=== PATIENT | female | born 1970 | race Caucasian/White ===

== ENCOUNTER 2017-03-25 02:15 | Emergency (ER) | payer SELFPAY ==
[~2017-03-25] VITALS: Ht 162.6 cm; Wt 102.1 kg
[~2017-03-25 02:15] MED LIST: AC500T PO; AMOX500C2 PO; FERR-57 PO; HYDR1TAB PO; IBUPROFEN 800 MG; IBUPROFEN 800 MG PO; LNS30CCR PO; OXYC-12 PO; PREN1TAB39 PO; PRM25T PO
[2017-03-25] MEDS ORDERED: PRD20T PO (03:26)
--- NOTE | 2017-03-25 03:26 | ED Integumentary General ---
General Chief Complaint: Allergic Reaction Stated Complaint: SWOLLEN LIP Nursing Triage Note: LOWER LIP SWELLING X2HRS, UNK CAUSE, NO OTHER SYMPTOMS Source: patient Exam Limitations: no limitations History of Present Illness Time seen by provider: 03:13 Initial Comments Patient presents to ER by private conveyance with a primary concern of a swollen lower lip that has spread slightly from the right side to the left. She denies any dental pain or swelling or abscesses. She's had no fevers chills, stridor, wheezing, shortness of breath, difficulty with fluids. She's never had this before and she is not aware of any allergies to food items. No thing she ate yesterday was a dish that she prepared herself that she is eaten several times in the past and some cookies from her son's girlfriend. She has taken 800 mg of ibuprofen by mouth. Allergies and Home Medications Allergies Coded Allergies: Sulfa(Sulfonamide Antibiotics) (Verified Allergy, 07/06/11) Home Medications No Active Prescriptions or Reported Meds Constitutional: No chills, No diaphoresis EENTM: No ear pain, No eye pain Respiratory: No cough, No short of breath, No stridor, No wheezing Cardiovascular: No chest pain, No edema, No palpitations Gastrointestinal: No constipation, No diarrhea, No nausea Genitourinary: No discharge, No dysuria Musculoskeletal: No muscle stiffness, No neck pain Skin: see HPI Psychiatric/Neurological: Denies Numbness, Denies Paresthesia Past Lrdvegc-Ldvelw-Qxxpqf Hx Patient Social History Alcohol Use: Denies Use Recreational Drug Use: No Smoking Status: Current Everyday Smoker Type Used: Cigarettes 2nd Hand Smoke Exposure: Yes Recent Foreign Travel: No Contact w/Someone Who Travel: No Recent Infectious Disease Expo: No Recent Hopitalizations: No Immunizations Up To Date Tetanus Booster (TDap): Unknown Seasonal Allergies Seasonal Allergies: No Surgeries History of Surgeries: No Respiratory History of Respiratory Disorde: No Cardiovascular History of Cardiac Disorders: No Neurological History of Neurological Disord: No Reproductive System : No Hx Reproductive Disorders: No Genitourinary History of Genitourinary Disor: No Gastrointestinal History of Gastrointestinal Di: No Musculoskeletal History of Musculoskeletal Dis: No Endocrine History of Endocrine Disorders: No HEENT History of HEENT Disorders: No Cancer History of Cancer: No Psychosocial History of Psychiatric Problem: No Integumentary History of Skin or Integumenta: No Blood Transfusions History of Blood Disorders: No Physical Exam Vital Signs Vital Sign - Last 12Hours 03/25/17 02:28 Temp 97.3 Pulse 88 Resp 18 B/P (MAP) 171/86 Pulse Ox 99 O2 Delivery Room Air Capillary Refill : Less Than 3 Seconds General Appearance: WD/WN, no apparent distress HEENT: PERRL/EOMI, normal ENT inspection, TMs normal, other (right side lower molar with dental caries and a lower lip that is swollen with edema) Neck: non-tender, supple, normal inspection, lymphadenopathy (R), lymphadenopathy (L) (mild) Cardiovascular: normal peripheral pulses, regular rate, rhythm, no edema Respiratory: no respiratory distress, no accessory muscle use Extremities: normal range of motion, normal capillary refill Neurologic/Psychiatric: paper cone maker II-XII nml as tested, no motor/sensory deficits, alert, normal mood/affect, oriented x 3 Skin: normal color, warm/dry, other (edematous lower lip without induration or areas of fluctuation or pore or drainage) Skin Problem Location: face Progress/Results/Core Measures Results/Orders Vital Signs/I&O Vital Sign - Last 12Hours 03/25/17 02:28 Temp 97.3 Pulse 88 Resp 18 B/P (MAP) 171/86 Pulse Ox 99 O2 Delivery Room Air Blood Pressure Mean: 114 Departure Impression Impression: Primary Impression: Allergic reaction Qualified Codes: T78.40XA - Allergy, unspecified, initial encounter Additional Impression: Lip swelling Disposition: 01 HOME, SELF-CARE Condition: Stable Departure-Patient Inst. Decision time for Depature: 03:24 Referrals: [facility] (PCP) Primary Care Physician DELIA BACA DO (Family) Primary Care Physician Patient Instructions: Food Allergy, Anaphylaxis (DC) Add. Discharge Instructions: Once a day as needed use 10 mg tablet of either Zyrtec, Claritin, loratadine or cetirizine or Kacie or fexofenadine. You should also keep the lip moisturized with lip balm to prevent pain and cracking. Ice is reasonable. Take 2 of the prednisone tablets every day until they are gone. If you begin to have wheezing or stridor or difficulty breathing or swallowing your secretions or drinking you should return to the ER for further examination. Otherwise you may follow- up with your primary care physician as needed. All discharge instructions reviewed with patient and/or family. Voiced understanding. Scripts Prednisone (Prednisone) 20 Mg Tab 40 MG PO DAILY for 5 Days, #10 TAB 0 Refills Prov: RONNA ESCOTO 03/25/17 Copy Copies To 1: DELIA BACA TITUS J Mar 25, 2017 03:25
[2017-03-25] MEDS ORDERED: diphenhydrAMINE 25 MG TAB (BENADRYL) PO ONE (03:30)
[2017-03-25] MEDS ORDERED: predniSONE 20 MG TAB PO ONE (03:30)
[2017-03-25 03:39] VITALS: BP 171/86
== END 2017-03-25 03:28 | disposition home or self-care (01) ==
LOC: EDUNIT# 02:15 → ER 02:19
DX: T78.40XA Allergy, unspecified, initial encounter (principal); K13.0 Diseases of lips; F17.210 Nicotine dependence, cigarettes, uncomplicated
CPT/HCPCS: 99283

== ENCOUNTER 2020-08-04 17:09 | Inpatient (IN) | payer SELFPAY ==
[~2020-08-04] VITALS: Ht 162.5 cm; Wt 88.2 kg
[~2020-08-04 17:09] MED LIST changes: +PRD20T PO
--- NOTE | 2020-08-04 17:27 | ED Respiratory ---
General Chief Complaint: Respiratory Problems Stated Complaint: SOB DUE TO FLUID IN LUNGS Nursing Triage Note: PT HAD CXR AT [facility] AND WAS TOLD SHE HAD FLUID ON HER LUNGS, ALSO SWOLLEN LYMPH NODES UNDER LT ARM AND LT NECK. Source: patient Exam Limitations: no limitations History of Present Illness Date Seen by Provider: Aug 04, 2020 Time Seen by Provider: 17:25 Initial Comments To ER by private vehicle from [facility] where she presented with diarrhea for a couple of months as well as shortness of breath for couple of months. Its been getting worse. No fevers or chills or exposure to known ill contacts. She has had a lymph node at the base of the left side of her neck and in her left armpit for a couple of months as well she states. She had a chest x-ray done at [facility] which allegedly showed "fluid on the lungs" and she was referred to the emergency room. No history of this. Quit smoking 7 months ago. Reports an unintentional weight loss of about 20 pounds over the last 6 to 7 months secondary to a poor appetite Timing/Duration: constant, getting worse Severity: moderate Associated Symptoms: cough Allergies and Home Medications Allergies Coded Allergies: Sulfa (Sulfonamide Antibiotics) (Verified Allergy, Unknown, 08/04/20) Home Medications Prednisone 20 Mg Tab, 40 MG PO DAILY Prescribed by: RONNA ESCOTO on 03/25/17 0326 Patient Home Medication List Home Medication List Reviewed: Yes Review of Systems Review of Systems Constitutional: see HPI; No chills, No fever EENTM: see HPI Respiratory: see HPI, cough, short of breath Cardiovascular: no symptoms reported Genitourinary: no symptoms reported Musculoskeletal: no symptoms reported Skin: no symptoms reported Psychiatric/Neurological: No Symptoms Reported Hematologic/Lymphatic: No Symptoms Reported Past Jbmnigh-Sxalmf-Adidnc Hx Patient Social History Type Used: Cigarettes 2nd Hand Smoke Exposure: Yes Recent Infectious Disease Expo: No Recent Hopitalizations: No Immunizations Up To Date Tetanus Booster (TDap): Unknown Seasonal Allergies Seasonal Allergies: No Past Medical History Surgeries: No Respiratory: No Cardiac: No Neurological: No Last Menstrual Period: Aug 04, 2020 Reproductive Disorders: No CONTRACT PROJECT MANAGER History: Menopausal Genitourinary: No Gastrointestinal: No Musculoskeletal: No Endocrine: No HEENT: No Cancer: No Psychosocial: No Integumentary: No Blood Disorders: No Physical Exam Vital Signs - First Documented 08/04/20 17:19 Temp 36.9 Pulse 97 Resp 20 B/P (MAP) 167/89 (115) Pulse Ox 97 O2 Delivery Room Air Capillary Refill : Less Than 3 Seconds Height: 5'4.00" Weight: 225lbs. oz. 102.689323hz; 33.00 BMI Method:Stated General Appearance: WD/WN, no apparent distress, other (No distress but she is noticeably dyspneic. Oxygen saturation 96% and up.) Eyes: Bilateral Eye Normal Inspection, Bilateral Eye PERRL Neck: other (left supraclavicular lymphadenopathy) Respiratory: no respiratory distress, no accessory muscle use, decreased breath sounds (left lower) Cardiovascular: regular rate, rhythm, no murmur Gastrointestinal: normal bowel sounds, non tender Extremities: normal range of motion, non-tender, other (large left axillary adenopathy) Neurologic/Psychiatric: alert, normal mood/affect, oriented x 3 Skin: normal color, warm/dry Progress/Results/Core Measures Suspected Sepsis Recent Fever Within 48 Hours: No Infection Criteria Present: None New/Unexplained Altered Menta: No Sepsis Screen: No Definite Risk SIRS Temperature: Pulse: 97 Respiratory Rate: 20 Laboratory Tests 08/04/20 17:28: White Blood Count 18.9H Blood Pressure 167 /89 Mean: 115 Laboratory Tests 08/04/20 17:28: Creatinine 0.82, Platelet Count 530H, Total Bilirubin 0.3 Results/Orders Lab Results Laboratory Tests Test 08/04/20 17:28 Range/Units White Blood Count 18.9 H 4.3-11.0 10^3/uL Red Blood Count 4.79 3.80-5.11 10^6/uL Hemoglobin 10.5 L 11.5-16.0 g/dL Hematocrit 36 35-52 % Mean Corpuscular Volume 75 L 80-99 fL Mean Corpuscular Hemoglobin 22 L 25-34 pg Mean Corpuscular Hemoglobin Concent 29 L 32-36 g/dL Red Cell Distribution Width 19.8 H 10.0-14.5 % Platelet Count 530 H 130-400 10^3/uL Mean Platelet Volume 9.8 9.0-12.2 fL Immature Granulocyte % (Auto) 1 % Neutrophils (%) (Auto) 89 H 42-75 % Lymphocytes (%) (Auto) 4 L 12-44 % Monocytes (%) (Auto) 4 0-12 % Eosinophils (%) (Auto) 3 0-10 % Basophils (%) (Auto) 1 0-10 % Neutrophils # (Auto) 16.7 H 1.8-7.8 10^3/uL Lymphocytes # (Auto) 0.8 L 1.0-4.0 10^3/uL Monocytes # (Auto) 0.7 0.0-1.0 10^3/uL Eosinophils # (Auto) 0.5 H 0.0-0.3 10^3/uL Basophils # (Auto) 0.1 0.0-0.1 10^3/uL Immature Granulocyte # (Auto) 0.1 0.0-0.1 10^3/uL Neutrophils % (Manual) 91 % Lymphocytes % (Manual) 3 % Monocytes % (Manual) 3 % Eosinophils % (Manual) 3 % Basophils % (Manual) 0 % Band Neutrophils 0 % Polychromasia SLIGHT Hypochromasia MODERATE Anisocytosis MARKED Target Cells SLIGHT D-Dimer 10.42 H 0.00-0.49 UG/ML Sodium Level 138 135-145 MMOL/L Potassium Level 4.2 3.6-5.0 MMOL/L Chloride Level 102 98-107 MMOL/L Carbon Dioxide Level 23 21-32 MMOL/L Anion Gap 13 5-14 MMOL/L Blood Urea Nitrogen 10 7-18 MG/DL Creatinine 0.82 0.60-1.30 MG/DL Estimat Glomerular Filtration Rate > 60 BUN/Creatinine Ratio 12 Glucose Level 143 H 70-105 MG/DL Calcium Level 9.5 8.5-10.1 MG/DL Corrected Calcium 9.7 8.5-10.1 MG/DL Total Bilirubin 0.3 0.1-1.0 MG/DL Aspartate Amino Transf (AST/SGOT) 22 5-34 U/L Alanine Aminotransferase (ALT/SGPT) 13 0-55 U/L Alkaline Phosphatase 141 H 40-136 U/L B-Type Natriuretic Peptide 29.7 <100.0 PG/ML Total Protein 8.7 H 6.4-8.2 GM/DL Albumin 3.7 3.2-4.5 GM/DL Coronavirus 2019 (MAXIM) Negative Negative My Orders Orders - BOLIVAR OLIVO APRN Cbc With Automated Diff (08/04/20 17:17) Comprehensive Metabolic Panel (08/04/20 17:17) Ekg Tracing (08/04/20 17:17) BNP (08/04/20 17:17) Fibrin Degradation Products (08/04/20 17:17) Manual Differential (08/04/20 17:28) Iohexol Injection (Omnipaque 350 Mg/Ml 1 (08/04/20 18:00) Received Contrast (Hold Metformin- Contr (08/04/20 18:00) Sodium Chloride Flush (Catheter Flush Sy (08/04/20 18:00) Ns (Ivpb) (Sodium Chloride 0.9% Ivpb Bag (08/04/20 18:00) Covid 19 Inhouse Test (08/04/20 17:58) Ct Isela Chest/Noang Abd-Pelv W (08/04/20 18:17) Benzocaine Extension Tube (Hurricaine Ex (08/04/20 19:24) Albuterol Pre-Mix Nebs (Rt) (Proventil (08/04/20 20:15) Svn Small Volume Nebulizer (08/04/20 20:06) Cefepime Injection (Maxipime Injection) (08/04/20 20:15) Procalcitonin (Pct) (08/04/20 20:11) Blood Culture (08/04/20 20:11) Lactic Acid Analyzer (08/04/20 20:11) Medications Given in ED Current Medications Medications Dose Ordered Sig/Clinton Route Start Time Stop Time Status Last Admin Dose Admin Albuterol Sulfate 2.5 mg ONCE ONCE INH 08/04/20 20:15 08/04/20 20:16 DC 08/04/20 20:21 2.5 MG Iohexol 100 ml ONCE ONCE IV 08/04/20 18:00 08/04/20 18:01 DC 08/04/20 19:00 76 ML Sodium Chloride 10 ml NEEDED PRN IV 08/04/20 18:00 08/04/20 19:00 10 ML Sodium Chloride 100 ml ONCE ONCE IV 08/04/20 18:00 08/04/20 18:01 DC 08/04/20 19:00 80 ML Vital Signs/I&O 08/04/20 17:19 Temp 36.9 Pulse 97 Resp 20 B/P (MAP) 167/89 (115) Pulse Ox 97 O2 Delivery Room Air Capillary Refill : Less Than 3 Seconds Blood Pressure Mean: 115 Departure Communication (Admissions) 2032-Discussed with Dr Grace. Recommends transfer to facility with CTS given the pericardial effusion. Spoke with [facility], they are at capacity and recommends transfer to other facility. I then spoke with heath Ingram and they will page the hospitalist. I discussed this plan with the patient she becomes tearful. Her is working in [place], her 17-year-old son is here with her. Her eldest son is at home taking care of her youngest son who is 8 years old currently. She wants to stay here, at least until she can arrange childcare. She is very tearful. She states that she has been dealing with this for several months and the likelihood of this pericardial effusion causing any symptoms is unlikely. I discussed with her that we are not able to treat pericardial effusions here if this should need pericardiocentesis or pericardial window if she should develop sudden decompensation. She understands this risk and insists that she would like to stay here. I notified Dr. Grace, she agrees to admit the patient here to ICU with cardiology consult and surgery consult. Dr. Cottrell has seen the patient in the emergency room and will likely do a thoracentesis tomorrow. She is without signs of cardiac tamponade currently, no jugular vein distention or narrowed pulse pressure. Impression Primary Impression: Pleural effusion Additional Impression: Mediastinal mass Disposition: ADMITTED INPATIENT Condition: Stable Admissions Decision to Admit Reason: Admit from ER (General) Decision to Admit/Date: Aug 04, 2020 Time/Decision to Admit Time: 19:22 Departure-Patient Inst. Referrals: [facility] (PCP) Primary Care Physician DELIA BACA DO (Family) Primary Care Physician BOLIVAR OLIVO APRN Aug 04, 2020 17:27
[2020-08-04 17:35] LABS: BASOPHILS # (AUTO) 0.1 10^3/uL (0.0-0.1); BASOPHILS % (AUTO) 1 % (0-10); EOSINOPHILS # (AUTO) 0.5 10^3/uL (0.0-0.3); EOSINOPHILS % (AUTO) 3 % (0-10); HEMATOCRIT 36 % (35-52); HEMOGLOBIN 10.5 g/dL (11.5-16.0); LYMPHOCYTES # (AUTO) 0.8 10^3/uL (1.0-4.0); LYMPHOCYTES % (AUTO) 4 % (12-44); MEAN CORPUSCULAR HEMOGLOBIN 22 pg (25-34); MEAN CORPUSCULAR HGB CONC 29 g/dL (32-36); MEAN CORPUSCULAR VOLUME 75 fL (80-99); MEAN PLATELET VOLUME 9.8 fL (9.0-12.2); MONOCYTES # (AUTO) 0.7 10^3/uL (0.0-1.0); MONOCYTES % (AUTO) 4 % (0-12); NEUTROPHILS # (AUTO) 16.7 10^3/uL (1.8-7.8); NEUTROPHILS % (AUTO) 89 % (42-75); PLATELET COUNT 530 10^3/uL (130-400); WHITE BLOOD COUNT 18.9 10^3/uL (4.3-11.0)
[2020-08-04 17:45] LABS: ALBUMIN 3.7 GM/DL (3.2-4.5); CHLORIDE 102 MMOL/L (98-107); POTASSIUM 4.2 MMOL/L (3.6-5.0); SODIUM 138 MMOL/L (135-145)
[2020-08-04 17:47] LABS: CALCIUM 9.5 MG/DL (8.5-10.1)
[2020-08-04 17:48] LABS: GLUCOSE 143 MG/DL (70-105); TOTAL PROTEIN 8.7 GM/DL (6.4-8.2)
[2020-08-04 17:49] LABS: CARBON DIOXIDE 23 MMOL/L (21-32)
[2020-08-04 17:50] LABS: BILIRUBIN,TOTAL 0.3 MG/DL (0.1-1.0)
[2020-08-04 17:51] LABS: ALKALINE PHOSPHATASE 141 U/L (40-136); CREATININE SERUM 0.82 MG/DL (0.60-1.30); GFR ESTIMATED > 60
[2020-08-04 17:52] LABS: BUN/CREATININE RATIO 12
[2020-08-04 17:54] LABS: ALANINE AMINOTRANSFERASE 13 U/L (0-55)
[2020-08-04] MEDS ORDERED: HOLD METFORMIN - RECEIVED CONTRAST 20 ML VIAL IV SCH (18:00)
[2020-08-04] MEDS ORDERED: CATHETER FLUSH 10 ML SYR IV PRN (18:00)
[2020-08-04] MEDS ORDERED: NS 100 ML (IVPB) BAG IV ONE (18:00)
[2020-08-04] MEDS ORDERED: IOHEXOL 350 MG/ML 100 ML (OMNIPAQUE 350) VIAL IV ONE (18:00)
[2020-08-04 18:05] LABS: ANISOCYTOSIS MARKED; BAND NEUTROPHILS 0 %; BASOPHILS % (MANUAL) 0 %; EOSINOPHILS % (MANUAL) 3 %; LYMPHOCYTES % (MANUAL) 3 %; MONOCYTES % (MANUAL) 3 %; NEUTROPHILS % (MANUAL) 91 %; POLYCHROMASIA SLIGHT
[2020-08-04 18:06] LABS: HYPOCHROMASIA MODERATE; TARGET CELLS SLIGHT
[2020-08-04] MEDS ORDERED: HURRICAINE EXT TUBE (BENZOCAINE) ONE (19:24)
--- NOTE | 2020-08-04 19:53 | NUR ---
DR. HORVATH IN WITH PT.
--- NOTE | 2020-08-04 19:55 | Diagnostic Imaging Report ---
INDICATION: SOA, high d-dimer left supraclavicular/axillary lymph node, weight los TECHNIQUE: CTA chest, abdomen and pelvis. Thin axial sections through the chest, abdomen and pelvis are obtained following intravenous contrast bolus. Multiplanar MIP images were reconstructed and reviewed. All CT scans use one or more of the following dose optimizing techniques: automated exposure control, MA and/or KvP adjustment based on patient size and exam type or iterative reconstruction. FINDINGS: CT chest: There is extensive mediastinal adenopathy. This is most pronounced in the superior mediastinum with apparent lymph node mass encircling the trachea and great vessels arising from the aortic arch. This measures approximately 11.0 x 9.5 cm in aggregate without significant great vessel stenosis or occlusion. The mass also extends along the mediastinum and into bilateral hilar and subcarinal distributions. Additional left axillary adenopathy is identified with lymph node demonstrating a long axis measurement of 3.1 cm. There is large left pleural and pericardial effusion. There is a small amount of right pleural fluid with subjacent atelectasis noted. IMPRESSION: Bulky mediastinal and bilateral hilar adenopathy with lymphadenopathy involving the left axilla. Findings are highly suspicious for lymphoma such as Hodgkin's disease and clinical correlation is recommended. There is an associated large left pleural effusion and pericardial effusion. CTA abdomen/pelvis: No focal hepatic or splenic lesion is identified. Gas containing stones are present within the lumen of the gallbladder. No pancreatic or adrenal gland lesion is identified. There are cortical cysts within both kidneys without evidence of solid renal mass or hydronephrosis. No free fluid is seen within the abdomen or pelvis. The appendix has a normal appearance and no urinary bladder lesion is identified. There is prominence of the left ovary which may be due to ovarian cyst. No pathologically enlarged central retroperitoneal or mesenteric adenopathy is identified. Small inguinal lymph nodes are seen, bilaterally, without evidence of pathologic enlargement. IMPRESSION: Cholelithiasis without evidence of acute abnormality or pathologic adenopathy within the abdomen or pelvis. Dictated by: Dictated on workstation # [id number]
[2020-08-04] MEDS ORDERED: RT-ALBUTEROL SULF 2.5 MG/3 ML PRE-MIX VIAL INH ONE (20:15)
[2020-08-04] MEDS ORDERED: CEFEPIME INJECTION 1,000 MG in WATER (STERILE) FOR INJECTION 10 ML IV ONE (20:15)
--- NOTE | 2020-08-04 20:25 | Consultation - Surgery ---
History of Present Illness History of Present Illness Patient Consulted On(tapan/time) 08/04/20 20:20 Time Seen by Provider: 19:43 History of Present Illness Surgery asked to consult regarding pleural effusion and SOB. HPI per ED: PT HAD CXR AT [facility] AND WAS TOLD SHE HAD FLUID ON HER LUNGS, ALSO SW OLLEN LYMPH NODES UNDER LT ARM AND LT NECK. To ER by private vehicle from [facility] where she presented with diarrhea for a couple of months as well as shortness of breath for couple of months. Its been getting worse. No fevers or chills or exposure to known ill contacts. She has had a lymph node at the base of the left side of her neck and in her left armpit for a couple of months as well she states. She had a chest x-ray done at [facility] which allegedly showed "fluid on the lungs" and she was referred to the emergency room. No history of this. Quit smoking 7 months ago. Reports an unintentional weight loss of about 20 pounds over the last 6 to 7 months secondary to a poor appetite Timing/Duration: constant, getting worse Severity: moderate Associated Symptoms: cough When I spoke to pt this evening she was most concerned because she was having such trouble breathing; although she was 96% on room air. She states she has not had a mammogram, but did have a Pap smear this summer which was normal. Denies colonoscopy, but also denies melena or hematochezia and no abdominal pain. Pt denies chest pain, even with deep breathing. She thinks the trouble breathing started about 3 months ago and is progressively getting worse. She has been told she has low Hg and is taking iron supplementation. Allergies and Home Medications Allergies Coded Allergies: Sulfa (Sulfonamide Antibiotics) (Verified Allergy, Unknown, 08/04/20) Home Medications Prednisone 20 Mg Tab, 40 MG PO DAILY Prescribed by: RONNA ESCOTO on 03/25/17 0326 Patient Home Medication List Home Medication List Reviewed: Yes Past Hvjkujx-Gwpagt-Bsiclk Hx Patient Social History Drug of Choice: denies Smoking Status: Former Smoker (Smoked 1 1/2- 2 ppd for over 27 years) Former Smoker, Quit: Dec 07, 2019 Type Used: Cigarettes 2nd Hand Smoke Exposure: Yes Recent Hopitalizations: No Alcohol Use?: No Immunizations Up To Date Tetanus Booster (TDap): Unknown Seasonal Allergies Seasonal Allergies: Yes Surgeries History of Surgeries: No Respiratory History of Respiratory Disorde: No Cardiovascular History of Cardiac Disorders: Yes Cardiac Disorders: Palpitations Neurological History of Neurological Disord: No Reproductive System Hx Reproductive Disorders: No TECHNICAL SALES SUPPORT SPECIALIST History: Menopausal Genitourinary History of Genitourinary Disor: No Gastrointestinal History of Gastrointestinal Di: Yes (DIARRHEA IN THE MORNINGS) Musculoskeletal History of Musculoskeletal Dis: No Endocrine History of Endocrine Disorders: No HEENT History of HEENT Disorders: No Cancer History of Cancer: No Psychosocial History of Psychiatric Problem: Yes Behavioral Health Disorders: Anxiety, Bipolar, Depression Integumentary History of Skin or Integumenta: Yes (ITCHY SKIN) Blood Transfusions History of Blood Disorders: No Family Medical History Significant Family History: Heart Disease, Cancer (Father had lung cancer), Hypertension (mother) Review of Systems-General Constitutional: No diaphoresis; malaise, weakness EENTM: No blurred vision, No double vision, No mouth pain, No mouth swelling, No epistaxis Respiratory: cough, dyspnea on exertion; No hemoptysis; short of breath Cardiovascular: No chest pain, No edema; palpitations Gastrointestinal: No abdominal pain, No dysphagia, No jaundice; loss of appetite, nausea; No vomiting Genitourinary: No dysuria, No frequency, No hematuria Musculoskeletal: No joint pain, No joint swelling, No muscle pain, No muscle stiffness Skin: No change in color, No change in hair/nails Psychiatric/Neurological: Anxiety, Depressed; Denies Seizure, Denies Tremors Other HEMATOLOGY: Pt denies any hx of abnormal bleeding or bruising Physical Exam-General Problems Physical Exam Vital Signs Vital Signs - First Documented 08/04/20 17:19 Temp 36.9 Pulse 97 Resp 20 B/P (MAP) 167/89 (115) Pulse Ox 97 O2 Delivery Room Air Capillary Refill : Less Than 3 Seconds General Appearance: WD/WN, mild distress Eyes: Bilateral Eye PERRL, Bilateral Eye EOMI HEENT: pharynx normal; No scleral icterus (R), No scleral icterus (L); other (mucous membranes moist) Neck: non-tender, full range of motion, supple Respiratory: chest non-tender, no respiratory distress, no accessory muscle use, decreased breath sounds (left with dullness to percussion), crackles Cardiovascular: regular rate, rhythm, no murmur Gastrointestinal: normal bowel sounds, non tender, soft, no organomegaly, no pulsatile mass Back: no CVA tenderness, no vertebral tenderness Extremities: normal range of motion, normal inspection, no pedal edema, no calf tenderness, normal capillary refill Neurologic/Psychiatric: ladle cleaner II-XII nml as tested, no motor/sensory deficits, alert, normal mood/affect, oriented x 3 Skin: normal color, warm/dry, ecchymosis (on arms) Lymphatic: axilla node tender (L) (very large, bigger than a golf ball); No inguinal node tender (R), No inguinal node tender (L); other (large left reed praclavicular node) Data Review Labs Laboratory Tests 08/04/20 17:28: White Blood Count 18.9H, Red Blood Count 4.79, Hemoglobin 10.5L, Hematocrit 36, Mean Corpuscular Volume 75L, Mean Corpuscular Hemoglobin 22L, Mean Corpuscular Hemoglobin Concent 29L, Red Cell Distribution Width 19.8H, Platelet Count 530H, Mean Platelet Volume 9.8, Immature Granulocyte % (Auto) 1, Neutrophils (%) (Auto) 89H, Lymphocytes (%) (Auto) 4L, Monocytes (%) (Auto) 4, Eosinophils (%) (Auto) 3, Basophils (%) (Auto) 1, Neutrophils # (Auto) 16.7H, Lymphocytes # (Auto) 0.8L, Monocytes # (Auto) 0.7, Eosinophils # (Auto) 0.5H, Basophils # (Auto) 0.1, Immature Granulocyte # (Auto) 0.1, Neutrophils % (Manual) 91, Lymphocytes % (Manual) 3, Monocytes % (Manual) 3, Eosinophils % (Manual) 3, Basophils % (Manual) 0, Band Neutrophils 0, Polychromasia SLIGHT, Hypochromasia MODERATE, Anisocytosis MARKED, Target Cells SLIGHT, D-Dimer 10.42H, Sodium Level 138, Potassium Level 4.2, Chloride Level 102, Carbon Dioxide Level 23, Anion Gap 13, Blood Urea Nitrogen 10, Creatinine 0.82, Estimat Glomerular Filtration Rate > 60, BUN/Creatinine Ratio 12, Glucose Level 143H, Calcium Level 9.5, Corrected Calcium 9.7, Total Bilirubin 0.3, Aspartate Amino Transf (AST/SGOT) 22, Alanine Aminotransferase (ALT/SGPT) 13, Alkaline Phosphatase 141H, B-Type Natriuretic Peptide 29.7, Total Protein 8.7H, Albumin 3.7, Coronavirus 2019 (MAXIM) Negative Radiology Date of Exam:08/04/20 CT TRAE CHEST/NOANG ABD-PELV W INDICATION: SOA, high d-dimer left supraclavicular/axillary lymph node, weight los TECHNIQUE: CTA chest, abdomen and pelvis. Thin axial sections through the chest, abdomen and pelvis are obtained following intravenous contrast bolus. Multiplanar MIP images were reconstructed and reviewed. All CT scans use one or more of the following dose optimizing techniques: automated exposure control, MA and/or KvP adjustment based on patient size and exam type or iterative reconstruction. FINDINGS: CT chest: There is extensive mediastinal adenopathy. This is most pronounced in the superior mediastinum with apparent lymph node mass encircling the trachea and great vessels arising from the aortic arch. This measures approximately 11.0 x 9.5 cm in aggregate without significant great vessel stenosis or occlusion. The mass also extends along the mediastinum and into bilateral hilar and subcarinal distributions. Additional left axillary adenopathy is identified with lymph node demonstrating a long axis measurement of 3.1 cm. There is large left pleural and pericardial effusion. There is a small amount of right pleural fluid with subjacent atelectasis noted. IMPRESSION: Bulky mediastinal and bilateral hilar adenopathy with lymphadenopathy involving the left axilla. Findings are highly suspicious for lymphoma such as Hodgkin's disease and clinical correlation is recommended. There is an associated large left pleural effusion and pericardial effusion. CTA abdomen/pelvis: No focal hepatic or splenic lesion is identified. Gas containing stones are present within the lumen of the gallbladder. No pancreatic or adrenal gland lesion is identified. There are cortical cysts within both kidneys without evidence of solid renal mass or hydronephrosis. No free fluid is seen within the abdomen or pelvis. The appendix has a normal appearance and no urinary bladder lesion is identified. There is prominence of the left ovary which may be due to ovarian cyst. No pathologically enlarged central retroperitoneal or mesenteric adenopathy is identified. Small inguinal lymph nodes are seen, bilaterally, without evidence of pathologic enlargement. IMPRESSION: Cholelithiasis without evidence of acute abnormality or pathologic adenopathy within the abdomen or pelvis. Dictated by: Dictated on workstation # [id number] Dict: 08/04/201936 Trans: 08/04/201957 [facility] [id number] Interpreted by: FRAN FUENTES MD Electronically signed by: FRAN FUENTES MD 08/04/201957 Assessment/Plan Assessment/Plan Assessment/Plan Large Left Pleural Effusion Lymphadenopathy Left Lung mass Cholelithiasis without Cholecystitis Bulky Mediastinal Lymphadenopathy Pt has large pleural effusion with lymphadenopathy and probably would benefit from thoracentesis; which will be therapeutic and diagnostic. She is being admitted by medicine for Leukocytosis along with the pleural effusion. I talked with the pt and her son about our plan; which would be Thoracentesis, then biopsy of axillary lymph node and then possible mediastinal lymph node biopsy. We could stop the process at any point depending on whether we got a diagnosis or not. Will get consent for thoracentesis and plan for it in the am. Discussed risks and complications; not limited to pain, bleeding, infection and pneumothorax. She understood and all questions answered to her satisfaction. VALERI HORVATH DO Aug 04, 2020 20:25
[2020-08-04 21:20] VITALS: BP 154/79
[2020-08-04 21:45] VITALS: BP 147/91
[2020-08-04] MEDS ORDERED: LORazepam 0.5 MG (ATIVAN) TABLET PO PRN (21:45)
[2020-08-04] MEDS ORDERED: ONDANSETRON 4 MG (ZOFRAN) ORAL DISSOLVE TAB PO PRN (21:45)
[2020-08-04] MEDS ORDERED: IBUPROFEN 800 MG (MOTRIN) TAB PO PRN (21:45)
[2020-08-04 22:00] VITALS: BP 163/81
[2020-08-04 22:15] VITALS: BP 143/87
[2020-08-04 22:45] VITALS: BP 140/83
[2020-08-04 23:15] VITALS: BP 132/75
[2020-08-05] VITALS (26 sets, daily range): BP systolic 111–152; BP diastolic 52–91
[2020-08-05] MEDS ORDERED: RT-ALBUTEROL INHALER HFA (VENTOLIN HFA) 18 GM IH PRN (00:45)
[2020-08-05 03:55] LABS: BASOPHILS # (AUTO) 0.1 10^3/uL (0.0-0.1); BASOPHILS % (AUTO) 0 % (0-10); EOSINOPHILS # (AUTO) 0.2 10^3/uL (0.0-0.3); EOSINOPHILS % (AUTO) 1 % (0-10); HEMATOCRIT 31 % (35-52); HEMOGLOBIN 9.1 g/dL (11.5-16.0); LYMPHOCYTES # (AUTO) 0.7 10^3/uL (1.0-4.0); LYMPHOCYTES % (AUTO) 3 % (12-44); MEAN CORPUSCULAR HEMOGLOBIN 22 pg (25-34); MEAN CORPUSCULAR HGB CONC 29 g/dL (32-36); MEAN CORPUSCULAR VOLUME 74 fL (80-99); MEAN PLATELET VOLUME 9.7 fL (9.0-12.2); MONOCYTES # (AUTO) 0.8 10^3/uL (0.0-1.0); MONOCYTES % (AUTO) 4 % (0-12); NEUTROPHILS # (AUTO) 18.7 10^3/uL (1.8-7.8); NEUTROPHILS % (AUTO) 91 % (42-75); PLATELET COUNT 477 10^3/uL (130-400); WHITE BLOOD COUNT 20.6 10^3/uL (4.3-11.0)
[2020-08-05 04:12] LABS: CHLORIDE 103 MMOL/L (98-107); POTASSIUM 3.5 MMOL/L (3.6-5.0); SODIUM 137 MMOL/L (135-145)
[2020-08-05] MEDS: CEFEPIME 1,000 MG/SWFI 10 ML IV PUSH IV SCH ×8 (04:13→20:44)
[2020-08-05 04:14] LABS: GLUCOSE 119 MG/DL (70-105)
[2020-08-05 04:15] LABS: CARBON DIOXIDE 21 MMOL/L (21-32)
[2020-08-05 04:18] LABS: CREATININE SERUM 0.73 MG/DL (0.60-1.30); GFR ESTIMATED > 60; PHOSPHORUS 3.6 MG/DL (2.3-4.7)
[2020-08-05 04:19] LABS: BUN/CREATININE RATIO 11
--- NOTE | 2020-08-05 04:34 | Pulmonary Consultation ---
History of Present Illness History of Present Illness Date Seen by Provider: Aug 05, 2020 Time Seen by Provider: 04:29 Date of Admission History of Present Illness 49 presented to ED from To ER by private vehicle from [facility] where she presented with diarrhea for a couple of months as well as shortness of breath for couple of months. Its been getting worse. No fevers or chills or exposure to known ill contacts. She has had a lymph node at the base of the left side of her neck and in her left armpit for a couple of months as well she states. She had a chest x -ray done at [facility] which allegedly showed "fluid on the lungs" and she was referred to the emergency room. No history of this. Quit smoking 7 months ago. Reports an unintentional weight loss of about 20 pounds over the last 6 to 7 months secondary to a poor appetite Timing/Duration: constant, getting worse Severity: moderate Associated Symptoms: cough Allergies and Home Medications Allergies Coded Allergies: Sulfa (Sulfonamide Antibiotics) (Verified Allergy, Unknown, 08/04/20) Home Medications Prednisone 20 Mg Tab, 40 MG PO DAILY Prescribed by: RONNA ESCOTO on 03/25/17 0326 Past Xpnorcl-Uwtsqx-Bmohsc Hx Patient Social History Alcohol Use: Denies Use Drug of Choice: denies Smoking Status: Former Smoker (Smoked 1 1/2- 2 ppd for over 27 years) Type Used: Cigarettes Former Smoker, Quit: Dec 07, 2019 2nd Hand Smoke Exposure: Yes Recent Infectious Disease Expo: No Recent Hopitalizations: No Alcohol Use?: No Immunizations Up To Date Tetanus Booster (TDap): Unknown Seasonal Allergies Seasonal Allergies: Yes Past Medical History Surgeries: No Respiratory: No Cardiac: Yes Palpitations Neurological: No Last Menstrual Period: Aug 04, 2020 Reproductive Disorders: No [employer] JUDGE History: Menopausal Genitourinary: No Gastrointestinal: Yes (DIARRHEA IN THE MORNINGS) Musculoskeletal: No Endocrine: No HEENT: No Cancer: No Psychosocial: Yes Anxiety, Bipolar, Depression Integumentary: Yes (ITCHY SKIN) Blood Disorders: No Family Medical History Heart Disease, Cancer (Father had lung cancer), Hypertension (mother) Review of Systems Time Seen by Provider: 04:42 Sepsis Event Evaluation Height, Weight, BMI Height: 5'4.00" Weight: 225lbs. oz. 102.648584fl; 34.04 BMI Method:Stated Exam Exam Vital Signs Date Time Temp Pulse Resp B/P (MAP) Pulse Ox O2 Delivery O2 Flow Rate FiO2 08/05/20 01:00 81 08/05/20 00:34 37.1 89 94 21 08/04/20 23:55 37.2 08/04/20 23:15 89 26 132/75 (94) 94 Room Air 08/04/20 22:45 86 20 140/83 (102) 95 Room Air 08/04/20 22:15 96 10 143/87 (105) 97 Room Air 08/04/20 22:00 97 26 163/81 (108) 94 Room Air 08/04/20 21:45 93 28 147/91 (109) 96 Room Air 08/04/20 21:36 100 08/04/20 21:35 95 Room Air 08/04/20 21:20 37.1 89 16 154/79 (104) 97 Room Air 08/04/20 21:14 37.0 98 20 156/87 (115) 97 Room Air 08/04/20 17:19 36.9 97 20 167/89 (115) 97 Room Air I & O 08/05/20 07:00 Intake Total 110 ml Balance 110 ml Height & Weight Height: 5'4.00" Weight: 225lbs. oz. 102.594508bl; 34.04 BMI Method:Stated Capillary Refill: Less Than 3 Seconds Gastrointestinal: normal bowel sounds, non tender Results Lab Laboratory Tests 08/04/20 17:28 08/05/20 03:10 Assessment/Plan Assessment/Plan SOB with right pleural effusion -Dr. Taveras has already been consulted for thoracentesis Bulky mediastinal lymphadenopathy probable lymphoma -Will plan for bronch with EBUS next Wed Pericardial effusion -Check echo -Cardiology following -No HTN Leukocytosis -Continue Cefepime -Suggs cultures pending LINA ZELAYA DO Aug 05, 2020 04:34
--- NOTE | 2020-08-05 06:10 | Diagnostic Imaging Report ---
Portable erect AP chest at 202 hours. INDICATION: Pleural effusion, dyspnea. There are no prior plain film examinations available for comparison. FINDINGS: As noted on the CTA chest, abdomen and pelvis exam performed on 08/04/2020, the left lung base is opacified by atelectasis/infiltrate and fluid. The left upper lung and right lung remain generally clear. The heart is enlarged. The large pericardial effusion seen on the CT exam also contributes to the increased size of the cardiac silhouette. The mediastinum is prominent consistent with the bulky mediastinal adenopathy seen on the CT exam. The osseous structures are intact. IMPRESSION: There is persistent involvement of the left lung base by atelectasis/infiltrate and fluid. There is also cardiomegaly and mediastinal widening due to bulky adenopathy. When compared to the recent CTA chest exam, there has been no significant change. Dictated by: Dictated on workstation # [id number]
[2020-08-05] MEDS ORDERED: KCL 20 MEQ TAB (K-DUR) PO ONE (08:00)
[2020-08-05] MEDS ORDERED: FLU QUADRIvalent (3YOA+) 60 mcg/0.5 ml 2020-21 (AFLURIA) IM ONE (08:00)
--- NOTE | 2020-08-05 08:24 | Progress Note - Surgery ---
CATRACHO GUZMAN MED STUDENT 08/05/20 0823: Subjective Date Seen by a Provider: Aug 05, 2020 Time Seen by a Provider: 07:30 Subjective/Events-last exam Pt was seen and examined this morning. She was sitting up in bed when I entered the room and stated that she was unable to sleep because she is worried about the possibility of having lymphoma. Pt stated that she was in no pain and denied SOB while sitting in bed. She stated that she experiences SOB after minimal exertion and it prevents her from walking around her room. Pt also had a lot of questions regarding the thoracentesis this morning and was nervous that it would be painful. Review of Systems General: Fatigue Pulmonary: Dyspnea (with exertion) Focused Exam Lactate Level 08/04/20 20:30: Lactic Acid Level 1.05 Time of Focused Exam: 07:30 Respiratory: Chest Non Tender, No Accessory Muscle Use, No Respiratory Distress, Decreased Breath Sounds (left lobes) Cardiovascular: Regular Rate, Rhythm, No Gallop, No Murmur, Normal Peripheral Pulses Skin: normal color, warm/dry Objective Exam Vital Signs Date Time Temp Pulse Resp B/P (MAP) Pulse Ox O2 Delivery O2 Flow Rate FiO2 08/05/20 08:05 100 Room Air 08/05/20 08:00 80 20 145/82 (103) 96 Room Air 08/05/20 07:00 74 19 142/75 (97) 93 Room Air 08/05/20 07:00 86 08/05/20 06:00 73 23 143/82 (102) 93 Room Air 08/05/20 05:00 80 21 150/83 (105) 92 Room Air 08/05/20 04:00 92 16 152/78 (102) 95 Room Air 08/05/20 03:00 87 23 128/68 (88) 91 Room Air 08/05/20 02:00 80 20 136/85 (102) 96 Room Air 08/05/20 01:00 81 08/05/20 01:00 80 20 152/87 (108) 95 Room Air 08/05/20 00:34 37.1 89 94 21 08/05/20 00:00 89 21 145/77 (99) 96 Room Air 08/04/20 23:55 37.2 08/04/20 23:15 89 26 132/75 (94) 94 Room Air 08/04/20 22:45 86 20 140/83 (102) 95 Room Air 08/04/20 22:15 96 10 143/87 (105) 97 Room Air 08/04/20 22:00 97 26 163/81 (108) 94 Room Air 08/04/20 21:45 93 28 147/91 (109) 96 Room Air 08/04/20 21:36 100 08/04/20 21:35 95 Room Air 08/04/20 21:20 37.1 89 16 154/79 (104) 97 Room Air 08/04/20 21:14 37.0 98 20 156/87 (115) 97 Room Air 08/04/20 17:19 36.9 97 20 167/89 (115) 97 Room Air I & O 08/05/20 07:00 Intake Total 220 ml Balance 220 ml Capillary Refill : Less Than 3 Seconds General Appearance: No Apparent Distress, Anxious HEENT: PERRL/EOMI Neck: Normal Inspection, Non Tender, Supple Respiratory: Chest Non Tender, No Accessory Muscle Use, No Respiratory Di stress, Decreased Breath Sounds (left lobes) Cardiovascular: Regular Rate, Rhythm, No Gallop, No Murmur, Normal Peripheral Pulses Gastrointestinal: normal bowel sounds, non tender, soft Extremity: Normal Capillary Refill, Normal Inspection, Non Tender, No Calf Tenderness, No Pedal Edema Neurologic/Psychiatric: Alert, Oriented x3, No Motor/Sensory Deficits, Depressed Affect Skin: Normal Color, Warm/Dry Lymphatic: Axilla Node Tender (L) Results Lab Laboratory Tests 08/04/20 17:28: White Blood Count 18.9H, Red Blood Count 4.79, Hemoglobin 10.5L, Hematocrit 36, Mean Corpuscular Volume 75L, Mean Corpuscular Hemoglobin 22L, Mean Corpuscular Hemoglobin Concent 29L, Red Cell Distribution Width 19.8H, Platelet Count 530H, Mean Platelet Volume 9.8, Immature Granulocyte % (Auto) 1, Neutrophils (%) (Auto) 89H, Lymphocytes (%) (Auto) 4L, Monocytes (%) (Auto) 4, Eosinophils (%) (Auto) 3, Basophils (%) (Auto) 1, Neutrophils # (Auto) 16.7H, Lymphocytes # (Auto) 0.8L, Monocytes # (Auto) 0.7, Eosinophils # (Auto) 0.5H, Basophils # (Auto) 0.1, Immature Granulocyte # (Auto) 0.1, Neutrophils % (Manual) 91, Lymphocytes % (Manual) 3, Monocytes % (Manual) 3, Eosinophils % (Manual) 3, Basophils % (Manual) 0, Band Neutrophils 0, Polychromasia SLIGHT, Hypochromasia MODERATE, Anisocytosis MARKED, Target Cells SLIGHT, D-Dimer 10.42H, Sodium Level 138, Potassium Level 4.2, Chloride Level 102, Carbon Dioxide Level 23, Anion Gap 13, Blood Urea Nitrogen 10, Creatinine 0.82, Estimat Glomerular Filtration Rate > 60, BUN/Creatinine Ratio 12, Glucose Level 143H, Calcium Level 9.5, Corrected Calcium 9.7, Total Bilirubin 0.3, Aspartate Amino Transf (AST/SGOT) 22, Alanine Aminotransferase (ALT/SGPT) 13, Alkaline Phosphatase 141H, B-Type Natriuretic Peptide 29.7, Total Protein 8.7H, Albumin 3.7, Procalcitonin 0.06, Coronavirus 2019 (MAXIM) Negative 08/04/20 20:30: Lactic Acid Level 1.05 08/05/20 03:10: White Blood Count 20.6H, Red Blood Count 4.17, Hemoglobin 9.1L, Hematocrit 31L, Mean Corpuscular Volume 74L, Mean Corpuscular Hemoglobin 22L, Mean Corpuscular Hemoglobin Concent 29L, Red Cell Distribution Width 19.1H, Platelet Count 477H, Mean Platelet Volume 9.7, Immature Granulocyte % (Auto) 1, Neutrophils (%) (Auto) 91H, Lymphocytes (%) (Auto) 3L, Monocytes (%) (Auto) 4, Eosinophils (%) (Auto) 1, Basophils (%) (Auto) 0, Neutrophils # (Auto) 18.7H, Lymphocytes # (Auto) 0.7L, Monocytes # (Auto) 0.8, Eosinophils # (Auto) 0.2, Basophils # (Auto) 0.1, Immature Granulocyte # (Auto) 0.1, Sodium Level 137, Potassium Level 3.5L, Chloride Level 103, Carbon Dioxide Level 21, Anion Gap 13, Blood Urea Nitrogen 8, Creatinine 0.73, Estimat Glomerular Filtration Rate > 60, BUN/Creatinine Ratio 11, Glucose Level 119H, Calcium Level 9.0, Phosphorus Level 3.6, Magnesium Level 2.0 Assessment/Plan Assessment/Plan Assessment/Plan Assessment: Large Left Pleural Effusion Lymphadenopathy Left Lung mass Cholelithiasis without Cholecystitis Bulky Mediastinal Lymphadenopathy Leukocytosis: WBC was 20.6 today Plan: Thoracentesis with biopsy of axillary lymph node and then possible mediastinal lymph node biopsy VADIM HORVATH DO 08/05/20 1215: Subjective Time Seen by a Provider: 09:12 Subjective/Events-last exam Pt seen and examined, states breathing is the same. She is ready for Thoracentesis. Review of Systems General: Fatigue Pulmonary: Dyspnea (with exertion), Cough Cardiovascular: Palpitations; No: Chest Pain Gastrointestinal: No: Nausea, Vomiting, Abdominal Pain Objective Exam General Appearance: No Apparent Distress, Anxious HEENT: PERRL/EOMI Respiratory: No Respiratory Distress, Accessory Muscle Use, Decreased Breath Sounds (left lower lobes) Cardiovascular: Regular Rate, Rhythm, No Murmur Gastrointestinal: non tender, soft, no organomegaly Lymphatic: Axilla Node Tender (L) Assessment/Plan Assessment/Plan Assessment/Plan Large Left Pleural Effusion Lymphadenopathy Left Lung mass Cholelithiasis without Cholecystitis Bulky Mediastinal Lymphadenopathy Leukocytosis: WBC was 20.6 today Plan: Thoracentesis with biopsy of axillary lymph node; spoke with Dr. Goff and thinks the best pathological diagnosis will come from lymph node. Plan to go to surgery for excision of left axillary lymph node; will get consent. We discussed risks and complications not limited to pain, bleeding, infection and scar. All questions answered to her satisfaction. Supervisory-Addendum Brief Verification & Attestation Participated in pt care: history, MDM, physical Personally performed: exam, history, MDM Care discussed with: Medical Student Procedures: n/a Verification and Attestation of Medical Student E/M Service A medical student performed and documented this service. I then reviewed and verified all information documented by the medical student and made modifications to such information, when appropriate. I personally performed a physical exam, medical decision making and then discussed any differences between the notes and made revisions as necessary to create one note. Vadim Horvath , 08/05/20 , 12:15 CATRACHO GUZMAN MED STUDENT Aug 05, 2020 08:23 VADIM HORVATH DO Aug 05, 2020 12:15
[2020-08-05] MEDS ORDERED: fentaNYL INJECTION 100 MCG/2 ML AMP ONE ×2 (09:51→12:49)
[2020-08-05] MEDS ORDERED: fentaNYL INJECTION 100 MCG/2 ML AMP IVP ONE ×2 (10:00→13:45)
--- NOTE | 2020-08-05 10:18 | Consultation-Cardiology ---
HPI-Cardiology Cardiology Consultation Date of Consultation 08/05/20 Date of Admission Time Seen by Provider: 10:14 Indication: shortness of breath HPI 49-year-old lady with history of lymphadenopathy noticed that for the past 3-4 months in her neck and axillary area, has been having progressive shortness of breath, had a chest x-ray showing pleural effusion. Patient came into the emergency room for worsening dyspnea, denied any chest pain. Reporting history of palpitation in the remote past. No syncope or near syncopal episode she was noted to have small to intermediate sized pericardial effusion. Blood pressure is stable. Home Medications & Allergies Allergies: Coded Allergies: Sulfa (Sulfonamide Antibiotics) (Verified Allergy, Unknown, 08/04/20) Home Medication List Reviewed: Yes [id number] Hx Patient Social History Marital Status: Employed/Student: employed Recreational Drug Use: No Drug of Choice: denies Smoking Status: Former Smoker (Smoked 1 1/2- 2 ppd for over 27 years) Type Used: Cigarettes 2nd Hand Smoke Exposure: Yes Recent Hopitalizations: No Alcohol Use?: No Immunizations Up To Date Tetanus Booster (TDap): Unknown Past Medical History Discussed below Family Medical History Significant Family History: Heart Disease, Cancer (Father had lung cancer), Hypertension (mother) Family Medical Hx Noncontributory Review of Systems-General Review of Systems Constitutional: see HPI; No chills, No fever; malaise EENTM: see HPI Respiratory: see HPI, cough, short of breath Cardiovascular: see HPI; No chest pain, No edema, No Hx of Intervention; palpitations; No syncope, No vascular heart diseas, No other Gastrointestinal: no symptoms reported, see HPI; No abdominal pain, No dysphagia, No jaundice; loss of appetite, nausea; No vomiting Genitourinary: no symptoms reported, see HPI Musculoskeletal: no symptoms reported, see HPI Skin: no symptoms reported, see HPI Psychiatric/Neurological: See HPI, Anxiety Reviewed Test Results Reviewed Test Results Lab Laboratory Tests Test 08/04/20 17:28 08/04/20 20:30 08/05/20 03:10 Range/Units White Blood Count 18.9 H 20.6 H 4.3-11.0 10^3/uL Red Blood Count 4.79 4.17 3.80-5.11 10^6/uL Hemoglobin 10.5 L 9.1 L 11.5-16.0 g/dL Hematocrit 36 31 L 35-52 % Mean Corpuscular Volume 75 L 74 L 80-99 fL Mean Corpuscular Hemoglobin 22 L 22 L 25-34 pg Mean Corpuscular Hemoglobin Concent 29 L 29 L 32-36 g/dL Red Cell Distribution Width 19.8 H 19.1 H 10.0-14.5 % Platelet Count 530 H 477 H 130-400 10^3/uL Mean Platelet Volume 9.8 9.7 9.0-12.2 fL Immature Granulocyte % (Auto) 1 1 % Neutrophils (%) (Auto) 89 H 91 H 42-75 % Lymphocytes (%) (Auto) 4 L 3 L 12-44 % Monocytes (%) (Auto) 4 4 0-12 % Eosinophils (%) (Auto) 3 1 0-10 % Basophils (%) (Auto) 1 0 0-10 % Neutrophils # (Auto) 16.7 H 18.7 H 1.8-7.8 10^3/uL Lymphocytes # (Auto) 0.8 L 0.7 L 1.0-4.0 10^3/uL Monocytes # (Auto) 0.7 0.8 0.0-1.0 10^3/uL Eosinophils # (Auto) 0.5 H 0.2 0.0-0.3 10^3/uL Basophils # (Auto) 0.1 0.1 0.0-0.1 10^3/uL Immature Granulocyte # (Auto) 0.1 0.1 0.0-0.1 10^3/uL Neutrophils % (Manual) 91 % Lymphocytes % (Manual) 3 % Monocytes % (Manual) 3 % Eosinophils % (Manual) 3 % Basophils % (Manual) 0 % Band Neutrophils 0 % Polychromasia SLIGHT Hypochromasia MODERATE Anisocytosis MARKED Target Cells SLIGHT D-Dimer 10.42 H 0.00-0.49 UG/ML Sodium Level 138 137 135-145 MMOL/L Potassium Level 4.2 3.5 L 3.6-5.0 MMOL/L Chloride Level 102 103 98-107 MMOL/L Carbon Dioxide Level 23 21 21-32 MMOL/L Anion Gap 13 13 5-14 MMOL/L Blood Urea Nitrogen 10 8 7-18 MG/DL Creatinine 0.82 0.73 0.60-1.30 MG/DL Estimat Glomerular Filtration Rate > 60 > 60 BUN/Creatinine Ratio 12 11 Glucose Level 143 H 119 H 70-105 MG/DL Calcium Level 9.5 9.0 8.5-10.1 MG/DL Corrected Calcium 9.7 8.5-10.1 MG/DL Total Bilirubin 0.3 0.1-1.0 MG/DL Aspartate Amino Transf (AST/SGOT) 22 5-34 U/L Alanine Aminotransferase (ALT/SGPT) 13 0-55 U/L Alkaline Phosphatase 141 H 40-136 U/L B-Type Natriuretic Peptide 29.7 <100.0 PG/ML Total Protein 8.7 H 6.4-8.2 GM/DL Albumin 3.7 3.2-4.5 GM/DL Procalcitonin 0.06 <0.10 NG/ML Coronavirus 2019 (MAXIM) Negative Negative Lactic Acid Level 1.05 0.50-2.00 MMOL/L Phosphorus Level 3.6 2.3-4.7 MG/DL Magnesium Level 2.0 1.6-2.4 MG/DL Radiology Date of Exam:08/04/20 CT TRAE CHEST/NOANG ABD-PELV W INDICATION: SOA, high d-dimer left supraclavicular/axillary lymph node, weight los TECHNIQUE: CTA chest, abdomen and pelvis. Thin axial sections through the chest, abdomen and pelvis are obtained following intravenous contrast bolus. Multiplanar MIP images were reconstructed and reviewed. All CT scans use one or more of the following dose optimizing techniques: automated exposure control, MA and/or KvP adjustment based on patient size and exam type or iterative reconstruction. FINDINGS: CT chest: There is extensive mediastinal adenopathy. This is most pronounced in the superior mediastinum with apparent lymph node mass encircling the trachea and great vessels arising from the aortic arch. This measures approximately 11.0 x 9.5 cm in aggregate without significant great vessel stenosis or occlusion. The mass also extends along the mediastinum and into bilateral hilar and subcarinal distributions. Additional left axillary adenopathy is identified with lymph node demonstrating a long axis measurement of 3.1 cm. There is large left pleural and pericardial effusion. There is a small amount of right pleural fluid with subjacent atelectasis noted. IMPRESSION: Bulky mediastinal and bilateral hilar adenopathy with lymphadenopathy involving the left axilla. Findings are highly suspicious for lymphoma such as Hodgkin's disease and clinical correlation is recommended. There is an associated large left pleural effusion and pericardial effusion. CTA abdomen/pelvis: No focal hepatic or splenic lesion is identified. Gas containing stones are present within the lumen of the gallbladder. No pancreatic or adrenal gland lesion is identified. There are cortical cysts within both kidneys without evidence of solid renal mass or hydronephrosis. No free fluid is seen within the abdomen or pelvis. The appendix has a normal appearance and no urinary bladder lesion is identified. There is prominence of the left ovary which may be due to ovarian cyst. No pathologically enlarged central retroperitoneal or mesenteric adenopathy is identified. Small inguinal lymph nodes are seen, bilaterally, without evidence of pathologic enlargement. IMPRESSION: Cholelithiasis without evidence of acute abnormality or pathologic adenopathy within the abdomen or pelvis. Dictated by: Dictated on workstation # [id number] Dict: 08/04/201936 Trans: 08/04/201957 [facility] [id number] Interpreted by: FRAN FUENTES MD Electronically signed by: FRAN FUENTES MD 08/04/201957 Physical Exam Physical Exam Vital Signs Vital Signs - First Documented 08/04/20 08/05/20 17:19 00:34 Temp 36.9 Pulse 97 Resp 20 B/P (MAP) 167/89 (115) Pulse Ox 97 O2 Delivery Room Air FiO2 21 Capillary Refill : Less Than 3 Seconds Height, Weight, BMI Height: 5'4.00" Weight: 225lbs. oz. 102.702739fx; 34.04 BMI Method:Stated General Appearance: No Apparent Distress, Anxious Eyes: Bilateral Eye Normal Inspection, Bilateral Eye PERRL, Bilateral Eye EOMI HEENT: PERRL/EOMI Neck: Normal Inspection, Non Tender, Supple Respiratory: Chest Non Tender, No Accessory Muscle Use, No Respiratory Distress, Decreased Breath Sounds (left lobes) Cardiovascular: Regular Rate, Rhythm, No Gallop, No Murmur, Normal Peripheral Pulses Extremity: Normal Capillary Refill, Normal Inspection, Non Tender, No Calf Tenderness, No Pedal Edema Neurologic/Psychiatric: Alert, Oriented x3, No Motor/Sensory Deficits, Depressed Affect Skin: Normal Color, Warm/Dry Lymphatic: Axilla Node Tender (L) A/P-Cardiology Admission Diagnosis Shortness of breath Palpitation Pericardial effusion Pleural effusion Assessment/Plan Shortness of breath, right-sided pleural effusion, possible thoracentesis today. Pericardial effusion, small to intermediate in size, no signs of hemodynamic significance. Continue to monitor Med yesterday lymphadenopathy, possible lymphoma, patient will be scheduled for bronchoscopy Leukocytosis, receiving antibiotics. History of palpitation with tachycardia, better at this time. Continue to monitor History of anxiety. History of tobaccoism, stopped smoking about 6-7 months ago. Encouraged to continue with smoking cessation DELMAR KLEIN MD Aug 05, 2020 10:18
--- NOTE | 2020-08-05 12:06 | Diagnostic Imaging Report ---
INDICATION: Pleural effusion. Sonographic guidance was provided for Dr. Taveras for performance of a thoracentesis. Images demonstrate a large left pleural effusion. IMPRESSION: Guidance for left-sided thoracentesis for Dr. Taveras. Dictated by: Dictated on workstation # [id number]
--- NOTE | 2020-08-05 12:17 | Progress Note-Post Operative ---
Post-Operative Progess Note Surgeon (s)/Microsoft Windows Engineer (s) Surgeon VALERI HORVATH DO Microsoft Windows Engineer: none Pre-Operative Diagnosis Left pleural Effusion Post-Operative Diagnosis same pending pathology Procedure & Operative Findings Date of Procedure 08/05/20 Procedure Performed/Findings The patient was in her room in the ICU. Ultrasound was used to identify largest pocket for placement of Nhrg-X-Dxfnoukb needle and catheter. The area was then prepped and draped and timeout was performed. Local anesthetic was infiltrated and 11 blade scalpel was used to make a small skin incision. Awma-A-Wavkhiih needle and catheter were then advanced until a straw-colored fluid was withdrawn. The catheter was advanced and the needle was removed. A total of 1550 mL of dark straw-colored fluid was withdrawn and then towards the end pt started coughing and we got out some blood tinged fluid. Once done draining, the catheter was removed and sterile bandage was applied. The patient tolerated procedure well without any complications. Anesthesia Type local lidocaine Estimated Blood Loss Estimated blood loss (mL): scant Specimens/Packing Specimens Removed 1550 pleural fluid VALERI HORVATH DO Aug 05, 2020 12:17
[2020-08-05] MEDS ORDERED: LIDOCAINE/EPI 1%-1:100,000 (XYLOCAINE) 50 ML ONE (12:30)
--- NOTE | 2020-08-05 12:39 | History & Physical-Hospitalist ---
History of Present Illness HPI/Chief Complaint CC: Dyspnea with pleural effusions and pericardial effusion refused to be transferred to higher level of care HPI: This is a 49yoWF clinic patient of [facility] who presented to the ER with increased dyspnea. Patient has not been feeling well for a few months. CXR revealed lymphadenopathy and effusions and CT revealed pericardial effusions and pleural effusions. [facility] Cardiology was consulted along with Dr Bledsoe and Dr Taveras. Thoracentesis performed with good results and had a small residual PTX. Left axilla lymph node biopsy was performed and sent for pathology. Presumed lymphoma dx. Source: patient, RN/MD Exam Limitations: no limitations Date Seen 08/05/20 Time Seen by a Provider: 11:00 Attending Physician Suzanne Grace DO [facility] Referring Physician Date of Admission Aug 04, 2020 at 20:46 Home Medications & Allergies Home Medications Reviewed patient Home Medication Reconciliation performed by pharmacy medication reconciliations autobody technician and/or nursing. Patients Allergies have been reviewed. Allergies Allergies Coded Allergies Sulfa (Sulfonamide Antibiotics) (Verified Allergy, Unknown, 08/04/20) Past Bumlqxm-Suvyht-Zxxsze Hx Past Med/Social Hx: Reviewed Nursing Past Med/Soc Hx, Reviewed and Corrections made Patient Social History Marrital Status: Employed/Student: employed Alcohol Use: Denies Use Recreational Drug Use: No Drug of Choice: denies Smoking Status: Former Smoker (Smoked 1 1/2- 2 ppd for over 27 years) Former Smoker, Quit: Dec 07, 2019 Type Used: Cigarettes 2nd Hand Smoke Exposure: Yes Recent Foreign Travel: No Contact w/other who traveled: No Recent Hopitalizations: No Recent Infectious Disease Expo: No Immunizations Up To Date Tetanus Booster (TDap): Unknown Seasonal Allergies Seasonal Allergies: Yes Past Medical History Cardiac: Palpitations Reproductive: No Menopausal Psychosocial: Anxiety, Bipolar, Depression History of Blood Disorders: No Family History Heart Disease, Cancer (Father had lung cancer), Hypertension (mother) Review of Systems Constitutional: see HPI, malaise, weakness Respiratory: cough, dyspnea on exertion Physical Exam Physical Exam Vital Signs Vital Signs - First Documented 08/04/20 08/05/20 08/05/20 17:19 00:34 14:23 Temp 36.9 Pulse 97 Resp 20 B/P (MAP) 167/89 (115) Pulse Ox 97 O2 Delivery Room Air O2 Flow Rate 8 FiO2 21 Capillary Refill : Less Than 3 Seconds Height, Weight, BMI Height: 5'4.00" Weight: 225lbs. oz. 102.918026iq; 34.04 BMI Method:Stated General Appearance: Anxious, Chronically ill Respiratory: No Accessory Muscle Use, No Respiratory Distress, Decreased Breath Sounds Cardiovascular: Regular Rate, Rhythm Neurologic/Psychiatric: Alert, Oriented x3, No Motor/Sensory Deficits, Normal Mood/Affect Skin: Mottled, Pallor, Rash Results Results/Procedures Labs Laboratory Tests 08/04/20 17:28 08/05/20 03:10 08/06/20 05:45 Patient resulted labs reviewed. Assessment/Plan Admission Diagnosis Assessment: Presumed new onset lymphoma Pericardial effusion Pleural effusions s/p thoracentesis with small PTX Dr Taveras managing s/p left axilla lymph node biopsy Plan: Appreciate all consultants Admission Status: Inpatient Order (span 2 midnights) Reason for Inpatient Admission: effusions Diagnosis/Problems Diagnosis/Problems (1) Mediastinal mass Status: Acute (2) Pleural effusion Status: Acute SUZANNE GRACE DO Aug 05, 2020 12:39
[2020-08-05] MEDS ORDERED: ONDANSETRON 4 MG/2 ML (SDV) Z0FRAN ONE (12:49)
[2020-08-05] MEDS ORDERED: proPOfol 200 MG/20 ML (DIPRIVAN) VIAL IV ONE ×2 (12:49→14:08)
[2020-08-05] MEDS ORDERED: SEVOFLURANE (ULTANE) 15 ML INHAL SOLN ONE (12:49)
[2020-08-05] MEDS ORDERED: MIDAZOLAM 2 MG/2 ML (VERSED) VIAL ONE (12:49)
[2020-08-05] MEDS ORDERED: LIDOCAINE PF 2% 5 ML (XYLOCAINE) VIAL ONE (12:49)
[2020-08-05] MEDS ORDERED: LACTATED RINGERS 1,000 ML IV PRN (13:15)
--- NOTE | 2020-08-05 13:16 | CONSULTATION REPORT ---
DATE OF SERVICE: 08/05/2020 The patient is admitted to ICU bed 12. PHYSICIAN REQUESTING CONSULTATION: Suzanne Grace DO IMPRESSION: 1. A 49-year-old female admitted with worsening cough and shortness of breath. 2. CT angiogram of the chest done at the emergency room showing mediastinal and bilateral hilar lymphadenopathy as well as left supraclavicular and left axillary lymphadenopathy along with right pleural effusion and pericardial effusion of undetermined etiology. 3. Microcytic anemia. RECOMMENDATION: 1. Agree with diagnostic and therapeutic right thoracentesis because of shortness of breath. 2. Would recommend obtaining biopsy of left axillary lymph node for tissue diagnosis as soon as possible. 3. Appreciate cardiology evaluation and echocardiogram results, which show small to intermediate pericardial effusion with no signs of hemodynamic significance. This could be monitored. 4. More than 21-bagn-bxmv history of tobacco use, smoking one and a half packs of cigarettes for 27 years and quit approximately seven months ago. RECOMMENDATIONS: 1. Agree with diagnostic and therapeutic thoracentesis. 2. Obtain biopsy of the left axillary lymph node as soon as possible. 3. Obtain serum iron studies because of microcytic anemia to rule out iron deficiency. 4. Once pathology report from the pleural fluid as well as lymph node biopsy is available, we will make further recommendations. 5. We will follow the patient with you. BRIEF HISTORY: The patient is a 49-year-old female who came to the emergency room with worsening shortness of breath for the past six to eight weeks. She has also noticed an enlarged nodule in the left side of her neck as well as the left axilla over the same period of time, which has not changed significantly since then. She had chest x-ray done at [facility], which showed a large right pleural effusion and was sent to the emergency room. She has approximately 20-pound weight loss in the last three to four months, which was not intentional even though she had started eating healthy. She does have mild night sweats, but denied any drenching night sweats. Her menstrual cycles have been irregular and heavy since the last year. She denied any significant hot flashes. PAST MEDICAL HISTORY: Significant for anxiety attacks for which she was started on Paxil with significant benefit. She still mentioned that she gets occasional palpitation, but had never had this evaluated. She gives history of generalized pruritus with recurrent skin infections, but no other major infections. PAST SURGICAL HISTORY: No surgeries in the past. SOCIAL HISTORY: The patient is and lives in a [place], [place]. 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 She has four children, 1 daughter and 3 sons. Oldest daughter lives in [place], [place] and a son lives in [place]. The two younger sons are in school and lives with her. She has more than 21-tcqo-rcjo history of tobacco use, smoking 1.5 packs of cigarettes a day for 27 years. She quit smoking seven months ago. She denied any alcohol or recreational drug use. FAMILY HISTORY: Significant for her father who was diagnosed with lung cancer in his early 80s. No other malignancies in the family that the patient knows of. Both sets of grandparents and her father had coronary artery disease. MENSTRUAL HISTORY: Menarche was in early teenage years. Last menstrual period started earlier this week. Her menstrual cycles have been irregular for the last year. She complained of menorrhagia with her menstrual cycle being very heavy and lasting longer. She is 4, para 4 with four living children. She denied any hormone replacement therapy. PHYSICAL EXAMINATION: GENERAL: Today showed a middle-aged female, anxious, awake and oriented, in no acute distress. VITAL SIGNS: Temperature was 36.6, pulse rate of 84, respirations 22, blood pressure 137/85 with oxygen saturation of 95% on room air. HEENT: Normocephalic, extraocular muscles intact, conjunctivae slightly pale, oral mucosa moist. NECK: Supple, with no JVD. No cervical lymphadenopathy palpable. Right supraclavicular lymphadenopathy palpable with a lymph node measuring more than 1 cm. The patient had a large left axillary lymph node measuring more than 3 cm along the anterior axillary line. No left axillary or inguinal lymphadenopathy palpable. CHEST: Symmetrical. LUNGS: With diminished breath sounds in the bases with a rare wheeze heard. CARDIOVASCULAR: Regular in rate and rhythm. No murmurs or gallops heard. ABDOMEN: Soft, nontender with no hepatosplenomegaly or other masses palpable. EXTREMITIES: Showed no edema. Several healed lesions from previous folliculitis on both lower extremities. Few excoriations from scratching noted. NEUROLOGIC: Grossly intact without focal motor deficits. LABORATORY DATA: CBC done today showed WBC 20.6, hemoglobin 9.1, MCV 74, platelet count 477,000 with neutrophil count 18.7, lymphocyte count 0.7 and monocyte count 0.8. CMP done at the time of evaluation at the emergency room showed normal electrolytes. BUN was 10 and creatinine 0.82 with GFR more than 60 mL per minute. Nonfasting glucose was 143. Liver function studies were within normal limits except alkaline phosphatase level of 141. BMP done today showed a potassium level of 3.5 and glucose of 119. Rest of the electrolytes, renal function, and magnesium level was within normal limits. Screening study for COVID-[address] angiogram of the chest showed bulky mediastinal and bilateral hilar adenopathy with lymphadenopathy involving the left axilla. This was highly suspicious for lymphoma. Associated large left pleural effusion and pericardial effusion. CT angiogram of the abdomen and pelvis showed cholelithiasis without evidence of acute abnormality or pathologic adenopathy within the abdomen or pelvis. Thank you for allowing me to participate in this patient's care. I will follow the patient with you and make appropriate recommendations. I have discussed these recommendations with Dr. Grace and Dr. Taveras by phone. Job ID: [id number] DocumentID: [id number] Dictated Date: 08/05/2020 12:36:41 Confidential Investigator Date: 08/05/2020 13:15:23 Dictated By: JANEY MUHAMMAD MD [facility]
[2020-08-05] MEDS ORDERED: PARO20TA5 PO (13:21)
[2020-08-05] MEDS ORDERED: FERR-84 PO (13:21)
--- NOTE | 2020-08-05 13:21 | NUR ---
SPOKE WITH THE PT AND CALLED [facility] TO COMPLETE THE MED REC 07-25-2020 PAROXETINE 20MG #30/30DS [facility] FILLED PRESCRIPTIONS TODAY (PROAIR, PREDNISONE, Z-BERNARDO) BUT PT HAS NOT STARTED DUE TO BEING ADMITTED YESTERDAY. OTC MEDS: IRON
[2020-08-05] MEDS ORDERED: MEPERIDINE (DEMEROL) INJ 50 MG/ML IVP ONE (13:45)
[2020-08-05] MEDS ORDERED: morphine INJ 10 MG/ML 1ML (SYR OR VIAL) IVP ONE (13:45)
[2020-08-05] MEDS ORDERED: ONDANSETRON 4 MG/2 ML (SDV) Z0FRAN IVP PRN (13:45)
--- NOTE | 2020-08-05 13:56 | Diagnostic Imaging Report ---
INDICATION: Post thoracentesis, left pleural effusion. Frontal chest obtained at 1007 a.m. is compared to same day at 0202 hours a.m. There is cardiomegaly. The left pleural effusion appears resolved compared to the prior study. There is mild central vascular congestion. There is a small left lateral basilar pneumothorax. Follow-up is recommended. IMPRESSION: Prominent cardiomegaly. Resolved left pleural effusion postthoracentesis. There is a small left lateral basilar pneumothorax, for which follow-up is recommended. Report was faxed to [facility] ICU by katharine at 11:20 am. Dictated by: Dictated on workstation # [id number]
--- NOTE | 2020-08-05 14:00 | NUR ---
CM/SS: Visited with pt as per Social Service Consult related to financial, probable Cancer, and pt being self pay. Plan: Pt is from home and will return there when deemed appropriate. Summary: Upon notification of social service consult this worker attempted to speak with pt - she is in surgery. This worker talks with son age 17 who is waiting in room. He reports that his step dad, and brother and pt live in the home. He does not know that they will have any needs. He is encouraged to let pt know that this worker came by. Talked with ETHAN Jc and she is unclear if pt pt will be discharged today or remain through the weekend. She will follow up and let this worker know the outcome. This worker will follow up.
[2020-08-05] MEDS ORDERED: PHENYLEPHRINE 100 MCG/ML 10 ML (ANESTHESIA) SYR ONE (14:07)
--- NOTE | 2020-08-05 14:11 | Progress Note-Post Operative ---
Post-Operative Progess Note Surgeon (s)/Gold Beater (s) Surgeon VALERI HORVATH DO Gold Beater: BARBIE Moon Pre-Operative Diagnosis Left Axillary Lymph node Post-Operative Diagnosis same pending path Procedure & Operative Findings Date of Procedure 08/05/20 Procedure Performed/Findings Exc of deep left axillary LN Anesthesia Type LMA Estimated Blood Loss Estimated blood loss (mL): scant Specimens/Packing Specimens Removed left axillary LN VALERI HORVATH DO Aug 05, 2020 14:11
--- NOTE | 2020-08-05 14:25 | Anesthesia-General Post-Op ---
General Patient Condition Mental Status/LOC: Same as Preop Cardiovascular: Satisfactory Nausea/Vomiting: Absent Respiratory: Satisfactory Pain: Controlled Complications: Absent Post Op Complications Complications None Follow Up Care/Instructions Patient Instructions None needed. Anesthesia/Patient Condition Patient Condition Patient is doing well, no complaints, stable vital signs, no apparent adverse anesthesia problems. No complications reported per nursing. MAYANK PINEDA CRNA Aug 05, 2020 14:25
--- NOTE | 2020-08-05 14:40 | NUR ---
Pt is listed as Cheondoism. She is currently in surgery and her son was unable to identify her spiritual needs at the moment.
--- NOTE | 2020-08-05 15:04 | Diagnostic Imaging Report ---
INDICATION: Follow-up thoracentesis. FINDINGS: There has been reaccumulation of some left basilar pleural effusion. Minimal left pneumothorax present. There is some subcutaneous emphysema present. The right lung is well-aerated and clear. Rather marked cardiac enlargement again noted. IMPRESSION: 1. Minimal left pneumothorax with subcutaneous emphysema. 2. Recurring left basilar effusion. 3. Marked cardiomegaly. Dictated by: Dictated on workstation # [id number]
[2020-08-05] MEDS ORDERED: RT-ALBUTEROL SULF 2.5 MG/3 ML PRE-MIX VIAL INH PRN (16:00)
--- NOTE | 2020-08-05 17:26 | NUR ---
REPORT CALLED TO [facility] HERNANDEZ.
[2020-08-05] MEDS: RT-ALBUTEROL SULF 2.5 MG/3 ML PRE-MIX VIAL INH SCH ×2 (18:19→21:36)
--- NOTE | 2020-08-05 18:19 | NUR ---
REC'D PER WC FROM ICU. SEE ASSESSMENT. PTS SON AT BEDSIDE. WHEN QUESTIONED, STATES "HE IS HERE BECAUSE I THREW A FIT." NURSING GATE PERSON AYAAN UNAWARE OF SON AT BEDSIDE WHEN NOTIFIED BY THIS RN.
--- NOTE | 2020-08-05 20:16 | OPERATIVE REPORT ---
DATE OF SERVICE: PREOPERATIVE DIAGNOSIS: Left axillary lymph node. POSTOPERATIVE DIAGNOSIS: Left axillary lymph node, pending pathology. PROCEDURE: Excision of left axillary lymph node. SURGEON: Vadim Taveras DO [employer] FINISHER: ERIN Moon. ANESTHESIA: LMA. SPECIMEN: Left axillary lymph node, actually one large and one small. BLOOD LOSS: Scant. FLUIDS: Per anesthesia. POSTOPERATIVE CONDITION: Stable. INDICATION FOR PROCEDURE: The patient is a 49-year-old female who has a large left axillary lymph node. She also had pleural effusion. Pleural effusion was drained earlier, but oncologist wanted to get the lymph node for the best pathological diagnosis. FINDINGS: The patient had a left axillary lymph node under the pectoralis major muscle, probably in the first or second portion of the axillary node area, removed and sent to pathology. PROCEDURE NOTE: After informed consent was obtained, the patient was brought to the operating room, placed on the operating table in supine position. She was sterilely prepped and draped in normal fashion. Local lidocaine was used to infiltrate the axilla above this large axillary lymph node that we felt, then made an incision with #15 blade, carried down through the skin into subcutaneous tissue, then deepened down to subcutaneous tissue with Bovie electrocautery down into the axillary fat packet under the pectoralis muscle, able to palpate this mass, do some blunt dissection, able to then shell it out a little bit, able to grasp portion of the fat surrounding the lymph node and then start dissecting the lymph node out with Bovie electrocautery, able to come across the fat and some small vessels with the Bovie electrocautery and then removed this. It felt like there was another small lymph node right next to it. This was grasped and then also cut out with Bovie electrocautery, passed off table and sent to pathology. Copiously irrigated the area with normal saline. Hemostasis obtained using Bovie electrocautery, then closed the incision with 3-0 Vicryl to close the subcutaneous tissue with 2 interrupted sutures and closed the skin with 4-0 undyed Monocryl 4 interrupted subcuticular stitches. The area was cleaned and dried, and Dermabond placed. The patient tolerated the procedure. Sponge, instrument and needle count correct at the end of the case. Job ID: [id number] DocumentID: [id number] Dictated Date: 08/05/2020 14:09:40 Manager Van Date: 08/05/2020 20:14:54 Dictated By: VADIM TAVERAS DO
[2020-08-05] MEDS ORDERED: WATER (STERILE) FOR INJECTION 10 ML ONE (20:34)
[2020-08-05] MEDS ORDERED: CEFEPIME 1 GM/10 ML (MAXIPIME) VIAL ONE (20:35)
[2020-08-06 00:05] VITALS: BP 134/63
[2020-08-06] MEDS: RT-ALBUTEROL SULF 2.5 MG/3 ML PRE-MIX VIAL INH SCH ×4 (01:49→16:04)
[2020-08-06] MEDS ORDERED: WATER (STERILE) FOR INJECTION 0 ML ONE (03:03)
[2020-08-06] MEDS ORDERED: CEFEPIME 1 GM/10 ML (MAXIPIME) VIAL ONE (03:03)
[2020-08-06] MEDS: CEFEPIME 1,000 MG/SWFI 10 ML IV PUSH IV SCH ×6 (03:18→16:05)
[2020-08-06 03:20] VITALS: BP 124/62
[2020-08-06 05:59] LABS: BASOPHILS % (AUTO) 0 % (0-10); EOSINOPHILS % (AUTO) 0 % (0-10); HEMATOCRIT 30 % (35-52); LYMPHOCYTES # (AUTO) 0.6 10^3/uL (1.0-4.0); LYMPHOCYTES % (AUTO) 3 % (12-44); MEAN CORPUSCULAR HEMOGLOBIN 22 pg (25-34); MEAN CORPUSCULAR HGB CONC 30 g/dL (32-36); MEAN CORPUSCULAR VOLUME 75 fL (80-99); MEAN PLATELET VOLUME 9.4 fL (9.0-12.2); MONOCYTES # (AUTO) 0.7 10^3/uL (0.0-1.0); MONOCYTES % (AUTO) 4 % (0-12); NEUTROPHILS # (AUTO) 17.5 10^3/uL (1.8-7.8); NEUTROPHILS % (AUTO) 92 % (42-75); PLATELET COUNT 450 10^3/uL (130-400)
[2020-08-06 06:19] LABS: CHLORIDE 105 MMOL/L (98-107); POTASSIUM 4.2 MMOL/L (3.6-5.0); SODIUM 138 MMOL/L (135-145)
[2020-08-06 06:20] LABS: CALCIUM 8.8 MG/DL (8.5-10.1)
[2020-08-06 06:21] LABS: GLUCOSE 132 MG/DL (70-105)
[2020-08-06 06:22] LABS: CARBON DIOXIDE 21 MMOL/L (21-32)
[2020-08-06 06:25] LABS: CREATININE SERUM 0.75 MG/DL (0.60-1.30); GFR ESTIMATED > 60; PHOSPHORUS 3.9 MG/DL (2.3-4.7)
[2020-08-06 06:26] LABS: BUN/CREATININE RATIO 17
[2020-08-06 06:27] LABS: MAGNESIUM 2.1 MG/DL (1.6-2.4)
[2020-08-06 06:39] LABS: ALBUMIN 3.1 GM/DL (3.2-4.5); CHLORIDE 106 MMOL/L (98-107); POTASSIUM 4.3 MMOL/L (3.6-5.0); SODIUM 138 MMOL/L (135-145)
[2020-08-06 06:41] LABS: CALCIUM 8.8 MG/DL (8.5-10.1)
[2020-08-06 06:42] LABS: GLUCOSE 134 MG/DL (70-105); TOTAL PROTEIN 6.8 GM/DL (6.4-8.2)
[2020-08-06 06:43] LABS: CARBON DIOXIDE 21 MMOL/L (21-32)
[2020-08-06 06:44] LABS: BILIRUBIN,TOTAL 0.2 MG/DL (0.1-1.0)
[2020-08-06 06:45] LABS: ALKALINE PHOSPHATASE 121 U/L (40-136)
[2020-08-06 06:46] LABS: CREATININE SERUM 0.76 MG/DL (0.60-1.30); GFR ESTIMATED > 60
[2020-08-06 06:47] LABS: BUN/CREATININE RATIO 17
[2020-08-06 06:48] LABS: ALANINE AMINOTRANSFERASE 12 U/L (0-55)
--- NOTE | 2020-08-06 07:24 | Pulmonary Progress Note ---
Subjective Time Seen by a Provider: 07:23 Sepsis Event Evaluation Height, Weight, BMI Height: 5'4.00" Weight: 225lbs. oz. 102.577468jm; 34.04 BMI Method:Stated Focused Exam Lactate Level 08/04/20 20:30: Lactic Acid Level 1.05 Time of Focused Exam: 07:30 Exam Exam Vital Signs Date Time Temp Pulse Resp B/P (MAP) Pulse Ox O2 Delivery O2 Flow Rate FiO2 08/06/20 03:20 36.4 70 18 124/62 (82) 92 Room Air 08/06/20 01:49 96 Room Air 08/06/20 01:00 74 08/06/20 00:05 36.2 86 18 134/63 (86) 95 Room Air 08/05/20 21:36 97 Room Air 08/05/20 20:34 36.3 96 18 113/58 (76) 92 Room Air 08/05/20 20:00 Room Air 08/05/20 19:00 111 08/05/20 18:21 76 20 127/63 (84) 98 Room Air 08/05/20 18:20 98 Room Air 08/05/20 18:19 Room Air 2.00 08/05/20 16:00 92 24 96 Nasal Cannula 2.00 08/05/20 15:27 37.4 08/05/20 15:25 36.2 18 137/74 (95) 98 OxyMask 2 08/05/20 15:25 OxyMask 2 08/05/20 15:22 88 Nasal Cannula 2.00 08/05/20 15:20 OxyMask 2 08/05/20 15:20 18 137/74 (95) 98 OxyMask 2 08/05/20 15:15 88 27 130/75 (93) 95 Room Air 08/05/20 15:10 18 135/78 (97) 98 OxyMask 2 08/05/20 15:05 OxyMask 2 08/05/20 15:00 18 135/78 (97) 98 OxyMask 2 08/05/20 14:50 OxyMask 2 08/05/20 14:50 19 129/89 (102) 96 OxyMask 2 08/05/20 14:40 18 128/72 (90) 96 OxyMask 4 08/05/20 14:35 OxyMask 6 08/05/20 14:30 22 120/67 (84) 95 OxyMask 6 08/05/20 14:23 OxyMask 8 08/05/20 14:23 36.5 18 111/52 (71) 95 OxyMask 8 08/05/20 13:24 36.6 83 96 21 08/05/20 13:23 96 Room Air 08/05/20 13:00 88 08/05/20 12:16 36.6 08/05/20 12:00 84 22 137/85 (102) 95 Room Air 08/05/20 11:00 86 24 134/85 (101) 98 Room Air 08/05/20 10:00 84 18 123/77 (92) 91 Room Air 08/05/20 09:00 88 24 147/91 (109) 97 Room Air 08/05/20 08:27 36.9 08/05/20 08:05 100 Room Air 08/05/20 08:00 80 20 145/82 (103) 96 Room Air I & O 08/06/20 07:00 Intake Total 1850 ml Output Total 200 ml Balance 1650 ml Height & Weight Height: 5'4.00" Weight: 225lbs. oz. 102.572646rz; 34.04 BMI Method:Stated General Appearance: Anxious, Chronically ill HEENT: PERRL/EOMI Neck: Normal Inspection, Non Tender, Supple Respiratory: No Accessory Muscle Use, No Respiratory Distress, Decreased Breath Sounds Cardiovascular: Regular Rate, Rhythm Capillary Refill: Less Than 3 Seconds Gastrointestinal: non tender, soft, no organomegaly Extremity: Normal Capillary Refill, Normal Inspection, Non Tender, No Calf Tenderness, No Pedal Edema Neurologic/Psychiatric: Alert, Oriented x3, No Motor/Sensory Deficits, Normal Mood/Affect Skin: Mottled, Pallor, Rash Lymphatic: Axilla Node Tender (L) Results Lab Laboratory Tests 08/04/20 17:28 08/05/20 03:10 08/06/20 05:45 Assessment/Plan Assessment/Plan SOB with right pleural effusion -Dr. Taveras has already been consulted for thoracentesis Bulky mediastinal lymphadenopathy probable lymphoma s/p Lymph node bx per surgey -If needed for dx a bronch with EBUS can be done next Wed Pericardial effusion -Cardiology following Leukocytosis - Cefepime -Suggs cultures pending LINA ZELAYA DO Aug 06, 2020 07:24
--- NOTE | 2020-08-06 07:35 | Diagnostic Imaging Report ---
EXAMINATION: Chest 1 view HISTORY: Shortness of breath COMPARISON: 08/05/2020 FINDINGS: Small to moderate left pleural effusion is unchanged. No pneumothorax. Heart size is moderately enlarged. There is mild edema. IMPRESSION: 1. Small to moderate left pleural effusion without pneumothorax. 2. Moderate enlargement of the heart. Dictated by: Dictated on workstation # [id number]
[2020-08-06 08:00] VITALS: BP 108/69
--- NOTE | 2020-08-06 09:01 | Progress Note - Surgery ---
SYDNEE GALLAGHER MED STUDENT 08/06/20 0901: Subjective Date Seen by a Provider: Aug 06, 2020 Time Seen by a Provider: 08:55 Subjective/Events-last exam Pt awake and up. Pt states that she feels great. Pt states that she is no longer SOB and able to get up/ walk around without discomfort. Pt does note cough on deep inspiration with white sputum production. Pt is interested in being discharged. Review of Systems General: No Chills, No Fatigue HEENT: No Head Aches, No Dysphasia Pulmonary: No Dyspnea; Cough (white sputum production) Cardiovascular: No: Chest Pain, Palpitations Gastrointestinal: No: Nausea, Vomiting Genitourinary: No Dysuria, No Retention Musculoskeletal: back pain (Soreness at procedure site) Neurological: No: Weakness, Numbness Focused Exam Lactate Level 08/04/20 20:30: Lactic Acid Level 1.05 Time of Focused Exam: 07:30 Objective Exam Vital Signs Date Time Temp Pulse Resp B/P (MAP) Pulse Ox O2 Delivery O2 Flow Rate FiO2 08/06/20 08:00 35.4 61 24 108/69 (82) 96 Room Air 08/06/20 07:25 99 Room Air 08/06/20 07:00 71 08/06/20 03:20 36.4 70 18 124/62 (82) 92 Room Air 08/06/20 01:49 96 Room Air 08/06/20 01:00 74 08/06/20 00:05 36.2 86 18 134/63 (86) 95 Room Air 08/05/20 21:36 97 Room Air 08/05/20 20:34 36.3 96 18 113/58 (76) 92 Room Air 08/05/20 20:00 Room Air 08/05/20 19:00 111 08/05/20 18:21 76 20 127/63 (84) 98 Room Air 08/05/20 18:20 98 Room Air 08/05/20 18:19 Room Air 2.00 08/05/20 16:00 92 24 96 Nasal Cannula 2.00 08/05/20 15:27 37.4 08/05/20 15:25 36.2 18 137/74 (95) 98 OxyMask 2 08/05/20 15:25 OxyMask 2 08/05/20 15:22 88 Nasal Cannula 2.00 08/05/20 15:20 OxyMask 2 08/05/20 15:20 18 137/74 (95) 98 OxyMask 2 08/05/20 15:15 88 27 130/75 (93) 95 Room Air 08/05/20 15:10 18 135/78 (97) 98 OxyMask 2 08/05/20 15:05 OxyMask 2 08/05/20 15:00 18 135/78 (97) 98 OxyMask 2 08/05/20 14:50 OxyMask 2 08/05/20 14:50 19 129/89 (102) 96 OxyMask 2 08/05/20 14:40 18 128/72 (90) 96 OxyMask 4 08/05/20 14:35 OxyMask 6 08/05/20 14:30 22 120/67 (84) 95 OxyMask 6 08/05/20 14:23 OxyMask 8 08/05/20 14:23 36.5 18 111/52 (71) 95 OxyMask 8 08/05/20 13:24 36.6 83 96 21 08/05/20 13:23 96 Room Air 08/05/20 13:00 88 08/05/20 12:16 36.6 08/05/20 12:00 84 22 137/85 (102) 95 Room Air 08/05/20 11:00 86 24 134/85 (101) 98 Room Air 08/05/20 10:00 84 18 123/77 (92) 91 Room Air 08/05/20 09:00 88 24 147/91 (109) 97 Room Air I & O 08/06/20 07:00 Intake Total 1850 ml Output Total 200 ml Balance 1650 ml Capillary Refill : Less Than 3 SecondsLess Than 3 Seconds General Appearance: Anxious, Chronically ill HEENT: PERRL/EOMI Neck: Normal Inspection, Non Tender, Supple Respiratory: Chest Non Tender, Normal Breath Sounds, No Accessory Muscle Use, No Respiratory Distress Cardiovascular: Regular Rate, Rhythm, No Gallop, No JVD, No Murmur Gastrointestinal: non tender, soft, no organomegaly Extremity: Normal Capillary Refill, Normal Inspection, Non Tender, No Calf Tenderness, No Pedal Edema Neurologic/Psychiatric: Alert, Oriented x3, No Motor/Sensory Deficits, Normal Mood/Affect Skin: Normal Color, Warm/Dry, Rash Lymphatic: Axilla Node Tender (L) Results Lab Laboratory Tests 08/06/20 05:45: White Blood Count 19.0H, Red Blood Count 4.06, Hemoglobin 9.0L, Hematocrit 30L, Mean Corpuscular Volume 75L, Mean Corpuscular Hemoglobin 22L, Mean Corpuscular Hemoglobin Concent 30L, Red Cell Distribution Width 19.0H, Platelet Count 450H, Mean Platelet Volume 9.4, Immature Granulocyte % (Auto) 1, Neutrophils (%) (Auto) 92H, Lymphocytes (%) (Auto) 3L, Monocytes (%) (Auto) 4, Eosinophils (%) ( Auto) 0, Basophils (%) (Auto) 0, Neutrophils # (Auto) 17.5H, Lymphocytes # (Auto) 0.6L, Monocytes # (Auto) 0.7, Eosinophils # (Auto) 0.0, Basophils # (Auto) 0.0, Immature Granulocyte # (Auto) 0.1, Sodium Level 138, Potassium Level 4.3, Chloride Level 106, Carbon Dioxide Level 21, Anion Gap 11, Blood Urea Nitrogen 13, Creatinine 0.76, Estimat Glomerular Filtration Rate > 60, BUN/Creatinine Ratio 17, Glucose Level 134H, Calcium Level 8.8, Corrected Calcium 9.5, Phosphorus Level 3.9, Magnesium Level 2.1, Total Bilirubin 0.2, Aspartate Amino Transf (AST/SGOT) 11, Alanine Aminotransferase (ALT/SGPT) 12, Alkaline Phosphatase 121, Total Protein 6.8, Albumin 3.1L Microbiology 08/04/20 MRSA Screen - Final, Complete MRSA not isolated 08/04/20 Blood Culture - Preliminary, Resulted No growth Assessment/Plan Assessment/Plan Assessment/Plan Large Left Pleural Effusion- thoracentesed Lymphadenopathy Left Lung mass Cholelithiasis without Cholecystitis Bulky Mediastinal Lymphadenopathy Leukocytosis improving: WBC was 19.0 today Plan: Thoracentesis with biopsy of axillary lymph node; spoke with Dr. Goff and thinks the best pathological diagnosis will come from lymph node. Surgery conducted yesterday for excision of left axillary lymph node; received consent. We discussed risks and complications not limited to pain, bleeding, infection and scar. All questions answered to her satisfaction. SWAPNA FERGUSON DO 08/06/20 6059: Subjective Subjective/Events-last exam Patient feeling better. Her breathing has improved significantly. Patient minimal discomfort at left axillary incision. Wanting to go home. Patient with occasional cough. Patient denies any nausea vomiting fever sweats chills shortness of breath or chest pain at this time. Chest x-ray started occurring left pleural effusion no pneumothorax as previous ly noted on previous x-ray. Objective Exam General Appearance: No Apparent Distress, WD/WN HEENT: PERRL/EOMI, Normal ENT Inspection Neck: Normal Inspection, Non Tender Respiratory: Chest Non Tender, No Accessory Muscle Use, No Respiratory Distress Cardiovascular: Regular Rate, Rhythm, No JVD Gastrointestinal: non tender, soft Extremity: Non Tender, No Calf Tenderness Neurologic/Psychiatric: Alert, Oriented x3, No Motor/Sensory Deficits, Normal Mood/Affect Skin: Normal Color, Warm/Dry, Other (Incision clean dry and intact no signs of infection left axilla) Assessment/Plan Assessment/Plan Assessment/Plan Left Pleural Effusion Lymphadenopathy Left Lung mass Cholelithiasis without Cholecystitis Bulky Mediastinal Lymphadenopathy Leukocytosis improving: WBC was 19.0 today Status post left thoracentesis Left pneumothorax small after thoracentesis Follow-up chest x-ray today no pneumothorax slight recurrence of pleural effusion. Patient is doing better. Not having any issues breathing. Status post left axillary node biopsy await biopsy results From surgical standpoint could DC home today with outpatient follow-up. Supervisory-Addendum Brief Verification & Attestation Participated in pt care: history, MDM, physical Personally performed: exam, history, MDM, supervision of care Care discussed with: Medical Student Procedures: n/a Results interpretation: Verified all documentation Verification and Attestation of Medical Student E/M Service A medical student performed and documented this service in my presence. I reviewed and verified all information documented by the medical student and made modifications to such information, when appropriate. I personally performed the physical exam and medical decision making. Swapna Ferguson, Aug 06, 2020,17:33 SYDNEE GALLAGHER MED STUDENT Aug 06, 2020 09:01 SWAPNA FERGUSON DO Aug 06, 2020 17:29
--- NOTE | 2020-08-06 09:28 | Cardiology Progress Note ---
Subjective Date Seen by Provider: Aug 06, 2020 Time Seen by Provider: 09:25 Subjective/Events-last exam Patient is sitting in bed, feeling better, breathing better, still very anxious. All her questions regarding her cardiac status and her pericardial effusion were answered. Review of Systems General: No Chills, No Night Sweats, No Fatigue, No Malaise, No Appetite, No Other HEENT: No Head Aches, No Visual Changes, No Eye Pain, No Ear Pain, No Dysphasia, No Sinus Congestion, No Post Nasal Drip, No Sore Throat, No Other Pulmonary: No Dyspnea, No Cough, No Pleuritic Chest Pain, No Other Cardiovascular: No: Chest Pain, Palpitations, Orthopnea, Paroxysmal Noc. Dyspnea, Edema, Lt Headedness, Other Focused Exam Lactate Level 08/04/20 20:30: Lactic Acid Level 1.05 Time of Focused Exam: 07:30 Objective-Cardiology Exam Last Set of Vital Signs Vital Signs 08/05/20 08/05/20 08/06/20 13:24 18:19 08:00 Temp 35.4 Pulse 61 Resp 24 B/P (MAP) 108/69 (82) Pulse Ox 96 O2 Delivery Room Air O2 Flow Rate 2.00 FiO2 21 Capillary Refill : Less Than 3 SecondsLess Than 3 Seconds I&O Intake and Output 08/06/20 00:00 Intake Total 1460 ml Output Total 200 ml Balance 1260 ml Intake Oral 1450 ml IV Total 10 ml Output Urine Total 200 ml # Voids 4 General: Alert, Oriented X3, Cooperative HEENT: Atraumatic, PERRLA Neck: Supple, No JVD, No Thyromegaly Lungs: Normal Air Movement, Other (bilateral rhonchi) Heart: Regular Rate, Normal S1, Normal S2, No Murmurs Abdomen: Normal Bowel Sounds, Soft, No Tenderness, No Hepatosplenomegaly, No Masses Extremities: No Clubbing, No Cyanosis, No Edema, Normal Pulses, No Tenderness/Swelling Skin: No Rashes, No Breakdown, No Significant Lesion Neuro: Normal Gait, Normal Speech, Strength at 5/5 X4 Ext, Normal Tone, Sensation Intact Psych/Mental Status: Mental Status NL, Mood NL Results Lab Laboratory Tests 08/06/20 05:45 A/P-Cardiology Admission Diagnosis Shortness of breath Palpitation Pericardial effusion Pleural effusion Assessment/Plan Shortness of breath, reporting improvement after thoracentesis and removal of 1.5 L. Continue to monitor Pleural and pericardial effusion, unknown etiology, thoracentesis was done, pathology is pending Lymphadenopathy, had excisional biopsy done by Dr. Taveras, pathology is pending Pericardial effusion, small to intermediate in size, no signs of tamponade. Continue to monitor Mediastinal and hilar and axillary lymphadenopathy, possible lymphoma, patient will be scheduled for bronchoscopy Leukocytosis, receiving antibiotics. History of palpitation with tachycardia, better at this time. Continue to monitor History of anxiety. History of tobaccoism, stopped smoking about 6-7 months ago. Encouraged to continue with smoking cessation DELMAR KLEIN MD Aug 06, 2020 09:28
[2020-08-06 12:00] VITALS: BP 133/64
[2020-08-06 12:18] LABS: BILIRUBIN,URINE NEGATIVE (NEGATIVE); CLARITY,URINE SL CLOUDY; COLOR,URINE AMBER; GLUCOSE, URINE (UA) NEGATIVE (NEGATIVE); KETONES,URINE NEGATIVE (NEGATIVE); LEUKOCYTE ESTERASE ,URINE TRACE (NEGATIVE); NITRITE,URINE NEGATIVE (NEGATIVE); PROTEIN,URINE TRACE (NEGATIVE)
[2020-08-06 12:25] LABS: BACTERIA,URINE TRACE /HPF; RBC,URINE >100 /HPF; SQUAMOUS EPITHELIAL CELL,UR RARE /HPF; WBC,URINE 25-50 /HPF
[2020-08-06 12:28] LABS: AMPHETAMINE SCREEN, URINE NEGATIVE (NEGATIVE); BARBITURATE SCREEN URINE NEGATIVE (NEGATIVE); BENZODIAZEPINES SCREEN URINE NEGATIVE (NEGATIVE); CANNABINOID SCREEN, URINE NEGATIVE (NEGATIVE); COCAINE SCREEN URINE NEGATIVE (NEGATIVE); METHADONE STAT NEGATIVE (NEGATIVE); METHAMPHETAMINE SCREEN URINE S NEGATIVE (NEGATIVE); OPIATE SCREEN URINE NEGATIVE (NEGATIVE); OXYCODONE STAT NEGATIVE (NEGATIVE); PROPOXYPHENE STAT NEGATIVE (NEGATIVE); TRICYCLIC ANTIDEPRESSANTS SCRE NEGATIVE (NEGATIVE)
[2020-08-06] MEDS ORDERED: CEFD300C3 PO (13:04)
--- NOTE | 2020-08-06 13:05 | Discharge Summary ---
Discharge Summary Hospital Course Was the Problem List Reviewed?: Yes Problems/Dx: (1) Mediastinal mass Status: Acute (2) Pleural effusion Status: Acute Hospital Course Date of Admission: Aug 04, 2020 at 20:46 Admission Diagnosis : Family Physician/Provider: Kassie Benitez DO Date of Discharge: 08/06/20 Discharge Diagnosis: Pleural effusion s/p thoracentesis, small pericardial effusion, presumed new dx of lymphoma s/p left axilla lymph node bx Hospital Course: Short course after admitted and refused to be transported to higher level of care. Thoracentesis performed with minimal PTX. Left axilla lymph node biopsy performed to confirm suspicion of lymphoma. patient was deemed stable for DC on abx in case pleural effusion had bacterial involvement. Labs and Pending Lab Test: Laboratory Tests 08/06/20 05:45: White Blood Count 19.0H, Red Blood Count 4.06, Hemoglobin 9.0L, Hematocrit 30L, Mean Corpuscular Volume 75L, Mean Corpuscular Hemoglobin 22L, Mean Corpuscular Hemoglobin Concent 30L, Red Cell Distribution Width 19.0H, Platelet Count 450H, Mean Platelet Volume 9.4, Immature Granulocyte % (Auto) 1, Neutrophils (%) (Auto) 92H, Lymphocytes (%) (Auto) 3L, Monocytes (%) (Auto) 4, Eosinophils (%) (Auto) 0, Basophils (%) (Auto) 0, Neutrophils # (Auto) 17.5H, Lymphocytes # (Auto) 0.6L, Monocytes # (Auto) 0.7, Eosinophils # (Auto) 0.0, Basophils # (Auto) 0.0, Immature Granulocyte # (Auto) 0.1, Sodium Level 138, Potassium Level 4.3, Chloride Level 106, Carbon Dioxide Level 21, Anion Gap 11, Blood Urea Nitrogen 13, Creatinine 0.76, Estimat Glomerular Filtration Rate > 60, BUN/Creatinine Ratio 17, Glucose Level 134H, Calcium Level 8.8, Corrected Calcium 9.5, Phosphorus Level 3.9, Magnesium Level 2.1, Total Bilirubin 0.2, Aspartate Amino Transf (AST/SGOT) 11, Alanine Aminotransferase (ALT/SGPT) 12, Alkaline Phosphatase 121, Total Protein 6.8, Albumin 3.1L 08/06/20 10:55: Urine Color AMBERH, Urine Clarity SL CLOUDY, Urine pH 6.0, Urine Specific [place] <=1.005, Urine Protein TRACEH, Urine Glucose (UA) NEGATIVE, Urine Ketones NEGATIVE, Urine Nitrite NEGATIVE, Urine Bilirubin NEGATIVE, Urine Urobilinogen 0.2, Urine Leukocyte Esterase TRACEH, Urine RBC (Auto) 3+H, Urine RBC >100H, Urine WBC 25-50H, Urine Squamous Epithelial Cells RARE, Urine Crystals NONE, Urine Bacteria TRACE, Urine Casts NONE, Urine Mucus NEGATIVE, Urine Culture Indicated YES, Urine Opiates Screen NEGATIVE, Urine Oxycodone Screen NEGATIVE, Urine Methadone Screen NEGATIVE, Urine Propoxyphene Screen NEGATIVE, Urine Barbiturates Screen NEGATIVE, Ur Tricyclic Antidepressants Screen NEGATIVE, Urine Phencyclidine Screen NEGATIVE, Urine Amphetamines Screen NEGATIVE, Urine Methamphetamines Screen NEGATIVE, Urine Benzodiazepines Screen NEGATIVE, Urine Cocaine Screen NEGATIVE, Urine Cannabinoids Screen NEGATIVE Microbiology 08/04/20 MRSA Screen - Final, Complete MRSA not isolated 08/04/20 Blood Culture - Preliminary, Resulted No growth Home Meds Active Cefdinir 300 Mg Capsule 300 Mg PO BID Reported Iron (Ferrous Sulfate) 325 Mg Tablet 325 Mg PO HS Paroxetine HCl 20 Mg Tablet 20 Mg PO DAILY Assessment/Pt Instructions PCP and Dr Bledsoe this week Discharge Planning: <30 minutes discharge planning Discharge Instructions Discharge Diet: No Restrictions Discharge Physical Examination Vital Signs Vital Signs Date Time Temp Pulse Resp B/P (MAP) Pulse Ox O2 Delivery O2 Flow Rate FiO2 08/06/20 13:00 82 08/06/20 12:00 35.3 20 133/64 (87) 97 Room Air 08/06/20 09:00 2.00 08/05/20 13:24 21 General Appearance: No Apparent Distress, WD/WN, Chronically ill Respiratory: Lungs Clear Cardiovascular: Regular Rate, Rhythm Neurologic/Psychiatric: Alert, Oriented x3, No Motor/Sensory Deficits, Normal Mood/Affect Allergies: Coded Allergies: Sulfa (Sulfonamide Antibiotics) (Verified Allergy, Unknown, 08/04/20) Discharge Summary Date of Admission Aug 04, 2020 at 20:46 Date of Discharge Discharge Date: Aug 06, 2020 Admission Diagnosis Assessment: Presumed new onset lymphoma Pericardial effusion Pleural effusions s/p thoracentesis with small PTX Dr aTveras managing s/p left axilla lymph node biopsy Plan: Appreciate all consultants Discharge Diagnosis (1) Mediastinal mass Status: Acute (2) Pleural effusion Status: Acute RON GLOVER DO Aug 06, 2020 13:05
[2020-08-06 15:33] VITALS: BP 134/75
[2020-08-06 15:59] VITALS: BP 134/75
== END 2020-08-06 16:07 | disposition home or self-care (01) | DRG 824 ==
LOC: EDUNIT# 17:09 → ER 17:12 → ICU 20:46 → 4TH 08-05 17:17
PROVIDERS: ADMIT Internal Medicine; ATTEND Internal Medicine
PROC: 0W9B3ZZ Drainage of Left Pleural Cavity, Percutaneous Approach (ICD-10-PCS; 2020-08-05)
PROC: 07B60ZX Excision of Left Axillary Lymphatic, Open Approach, Diagnostic (ICD-10-PCS; principal; 2020-08-05 13:36)
DX: C81.94 Hodgkin lymphoma, unspecified, lymph nodes of axilla and upper limb (principal); J90 Pleural effusion, not elsewhere classified; I31.3 Pericardial effusion (noninflammatory); J95.811 Postprocedural pneumothorax; R19.7 Diarrhea, unspecified; R59.1 Generalized enlarged lymph nodes; Z20.822 Contact with and (suspected) exposure to COVID-19; F41.9 Anxiety disorder, unspecified; F31.9 Bipolar disorder, unspecified; K80.20 Calculus of gallbladder without cholecystitis without obstruction; Z87.891 Personal history of nicotine dependence; Z79.52 Long term (current) use of systemic steroids; Z88.2 Allergy status to sulfonamides; Z80.1 Family history of malignant neoplasm of trachea, bronchus and lung
CPT/HCPCS: 36415; 71045; 71275; 74177; 76942; 80048; 80053; 80306; 81000; 83605; 83735; 83880; 84100; 84145; 84703; 85007; 85025; 85027; 85379; 87040; 87081; 87088; 87635; 93005; 93306; 94640; 94760

== ENCOUNTER 2020-08-15 06:20 | Outpatient (RCR) | payer OTHER ==
[~2020-08-15] VITALS: Ht 162 cm; Wt 90.0 kg
[~2020-08-15 06:20] MED LIST changes: +CEFD300C3 PO; +FERR-84 PO; +PARO20TA5 PO
[2020-08-17] MEDS ORDERED: ACHD5005 PO (12:00)
== END 2020-08-15 14:10 | disposition home or self-care (01) ==
LOC: PREOP 06:20
PROVIDERS: ATTEND Surgery
DX: Z01.812 Encounter for preprocedural laboratory examination (principal); C81.90 Hodgkin lymphoma, unspecified, unspecified site; Z20.822 Contact with and (suspected) exposure to COVID-19
CPT/HCPCS: 87635

== ENCOUNTER → 2020-08-16 | Outpatient (CLI) | payer OTHER ==
[~2020-08-16] MED LIST changes: +ACHD5005 PO
--- NOTE | 2020-08-16 13:23 | Diagnostic Imaging Report ---
INDICATION: Hodgkin's lymphoma, initial staging. TECHNIQUE: Serum blood glucose level at the time of injection is 85 mg/dL. Patient was administered 13.7 mCi F-18 FDG intravenously in the right antecubital location and PET imaging was performed from the top of the skull to mid thighs. Noncontrast CT was also performed for attenuation correction and anatomic correlation. COMPARISON: No prior PET/CT study is available for comparison. Comparison is made with prior CT of the chest, abdomen, and pelvis from 08/04/2020. FINDINGS: Symmetric activity throughout the brain is noted. There are hypermetabolic lymph nodes in the supraclavicular regions bilaterally with SUV max on the left at approximately 13.5 and on the right 8.5. There is hypermetabolic lymph node in the right axilla. There is significant hypermetabolism in the mediastinum correlating with the bulky adenopathy noted on CT. Bilateral hilar hypermetabolic lymphadenopathy and subcarinal lymphadenopathy is noted. Patient appears to have a large pericardial effusion and moderate-sized left pleural effusion. There appears to be hypermetabolic mass in the left cardiophrenic angle with SUV max of 18.5. No definite hypermetabolic lesions in the abdomen or pelvis are identified. IMPRESSION: Hypermetabolic lymphadenopathy in the left neck and supraclavicular region as well as the mediastinum and bilateral ronan. There is a hypermetabolic mass in the left cardiophrenic angle. Patient has a large pericardial effusion and [id number] left pleural effusion. No hypermetabolic lymphadenopathy in abdomen or pelvis is identified. Dictated by: Dictated on workstation # [id number]
== END ==
LOC: RAD 09:54
PROVIDERS: ATTEND Internal Medicine Hematology & Oncology
DX: Z51.11 Encounter for antineoplastic chemotherapy (principal); C81.12 Nodular sclerosis Hodgkin lymphoma, intrathoracic lymph nodes; I31.3 Pericardial effusion (noninflammatory); J90 Pleural effusion, not elsewhere classified
CPT/HCPCS: 78815; A9552

== ENCOUNTER 2020-08-17 09:13 | Day surgery (SDC) | payer OTHER ==
[~2020-08-17] VITALS: Ht 162 cm; Wt 34.3 kg
[2020-08-17] VITALS (7 sets, daily range): BP systolic 104–129; BP diastolic 55–83
[~2020-08-17 09:13] MED LIST changes: -ACHD5005 PO
[2020-08-17] MEDS ORDERED: ceFAZolin INJECTION 1,000 MG in WATER (STERILE) FOR INJECTION 10 ML IV ONE (09:30)
[2020-08-17] MEDS ORDERED: LACTATED RINGERS 1,000 ML IV PRN (09:30)
--- NOTE | 2020-08-17 10:44 | Progress Note-Pre Operative ---
Pre-Operative Progress Note H&P Reviewed The H&P was reviewed, patient examined and no changes noted. Time Seen by Provider: 10:37 Date H&P Reviewed: Aug 17, 2020 Time H&P Reviewed: 10:38 Pre-Operative Diagnosis: Venous Insuffficiency, Lymphoma Addendum Physician Addendum Addendum Pt recently diagnosed with Lymphoma and needs a Prudencio-Cath for chemotherapy. We discussed the procedure; risks and complications, not limited to pain, bleeding, infection, scar, damage to major vessel or even pneumothorax. All questions answered to her satisfaction. Will place port on the right side. Progress 10:42 VALERI HORVATH DO Aug 17, 2020 10:44
[2020-08-17] MEDS ORDERED: HEParin (CENTRAL IV FLUSH) 500 UNIT/5 ML SYR ONE (10:59)
[2020-08-17] MEDS ORDERED: LIDOCAINE/EPI 1%-1:200,000 (XYLOCAINE) 10 ML VIAL ONE (10:59)
[2020-08-17] MEDS ORDERED: 0.9% SODIUM CHLORIDE PF INJ 20 ML VIAL ONE (10:59)
[2020-08-17] MEDS ORDERED: LIDOCAINE PF 2% 5 ML (XYLOCAINE) VIAL ONE (11:04)
[2020-08-17] MEDS ORDERED: proPOfol 200 MG/20 ML (DIPRIVAN) VIAL IV ONE (11:04)
[2020-08-17] MEDS ORDERED: MIDAZOLAM 2 MG/2 ML (VERSED) VIAL ONE (11:06)
[2020-08-17] MEDS ORDERED: fentaNYL INJECTION 100 MCG/2 ML AMP ONE (11:06)
[2020-08-17] MEDS ORDERED: PROPOFOL INJECTION 50 ML IV ONE (11:07)
--- NOTE | 2020-08-17 11:59 | Progress Note-Post Operative ---
Post-Operative Progess Note Surgeon (s)/Shop Blacksmith (s) Surgeon VALEIR HORVATH DO Shop Blacksmith: DULCE Cosme Pre-Operative Diagnosis Venous Insuffficiency, Lymphoma Post-Operative Diagnosis same Procedure & Operative Findings Date of Procedure 08/17/20 Procedure Performed/Findings PROCEDURE: [Right] subclavian port placement. COMPLICATIONS: None. INDICATIONS: The patient is a 49 year old female [with Venous Insuffiency and Lymphoma]. Patient understands the risks and benefits of port placement and wished to proceed with the procedure. Consent was signed on the chart. PROCEDURE: The patient was taken to the operating suite, was prepped and draped in the sterile fashion. A surgical pause was performed. Local anesthetic was infiltrated towards the right clavicle and on the right anterior chest wall; where pocket would be created. Using an 18 Gauge finder needle with negative inspiration the right subclavian vein was accessed. Dark nonpulsatile blood was withdrawn and the wire was inserted. Fluoroscopy assured proper placement. The needle was removed the wire was then secured. A #11 blade scalpel was used to make a stab incision along the wire as well as make an incision over the right anterior chest. Cautery was used to dissect down to the pectoral fascia. A pocket was created with blunt dissection. The dilator sheath was then advanced over the wire using the Seldinger technique and the wire and inner portin of the sheath were removed. The Groshong catheter was inserted through the sheath using the Seldinger technique and the sheath was then removed. The catheter was then tunneled to the right chest pocket. Fluoroscopy was used to cut to length and this was then attached to the port which was then placed within the pocket. The port was then accessed without difficulty. It was then flushed with saline and then heparin. The subcutaneous tissues were then reapproximated using 3-0 Vicryl. Next 4-0 Monocryl, 3 interrupted sutures in the subcuticular tissue were placed to close the skin. The areas were then washed and dried. Skin Affix was placed over incision. The patient tolerated the procedure well without complication and was taken to recovery room in stable condition. Anesthesia Type IV sedation by DIRECTOR OF DATABASE MARKETING Estimated Blood Loss Estimated blood loss (mL): scant Specimens/Packing Specimens Removed none VALERI HORVATH DO Aug 17, 2020 11:59
[2020-08-17] MEDS ORDERED: ACHD5005 PO (12:00)
--- NOTE | 2020-08-17 12:01 | Discharge Inst-Surgical ---
Discharge Inst-Surgical Depart Medication/Instructions New, Converted or Re-Newed RX: RX Given to Pt/Family Patient Instructions Follow up Appt: Make appointment for 1 week. [phone] Instructions: No lifting greater than 20 pounds. No strenuous activity. May shower in 24 hours, no tub bath or soaking. Use incentive spirometer at home as directed. No Smoking Skin/Wound Care: May remove bandages in am. You need to leave the Dermabond on incision it will fall off on it's own. Symptoms to Report: Appetite Changes, Extremity Discoloration, Numbness/Tingling, Swelling Increased, Bleeding Excessive, Eyesight Changes, Pain Increased, Urine Color Change, Constipation(Persistent), Fever over 101 degree F, Pain/Pressure in chest, Urinating Difficulty, Cough Up/Vomit Blood, Heart Beat Irreg/Pounding, Pain/Pressure in jaw, Cramps in feet or legs, Lightheadedness, Pain/Pressure in shoulder, Diarrhea(Persistent), Memory Changes Suddenly, Questions/Concerns, Weight gain consecutive days, Dizziness/Fainting, Nausea/Vomiting, Shortness of Breath, Weight gain over 2 pounds If questions or concerns contact your physician Or seek help at emergency department. Activity Activity as Tolerated: Yes Activity Instructions: Avoid Stress to Incision Driving Instructions: No Driving/Refer to Dr. Tirado Discharge Diet: No Restrictions Diet After 24 Hours: Clear Liquid if Nauseous If Any Problems/Questions/Issu: Contact Your Physician, Go to Emergency Room Skin/Wound Care Infection Signs and Symptoms: Increased Redness, Foul Odor of Wound, Increased Drainage, Skin Itchy or Has a Rash, Increased Swelling, Temperature Above 101 F Bathing Instructions: Shower Stitches/Juloi/Dermabond Dis: VALERI Pendleton DO Aug 17, 2020 12:01
--- NOTE | 2020-08-17 12:11 | Anesthesia-General Post-Op ---
MAC Patient Condition Mental Status/LOC: Same as Preop Cardiovascular: Satisfactory Nausea/Vomiting: Absent Respiratory: Satisfactory Pain: Controlled Complications: Absent Post Op Complications Complications None Follow Up Care/Instructions Patient Instructions None needed. Anesthesiology Discharge Order Discharge Order Patient is doing well, no complaints, stable vital signs, no apparent adverse anesthesia problems. No complications reported per nursing. MINNIE MURO CRNA Aug 17, 2020 12:11
[2020-08-17] MEDS ORDERED: ONDANSETRON 4 MG/2 ML (SDV) Z0FRAN IVP PRN (12:15)
[2020-08-17] MEDS ORDERED: morphine INJ 10 MG/ML 1ML (SYR OR VIAL) IVP ONE (12:15)
--- NOTE | 2020-08-17 13:23 | Diagnostic Imaging Report ---
INDICATION: Port-A-Cath placement. COMPARISON: None. TOTAL FLUOROSCOPY TIME: 2.9 seconds. TOTAL NUMBER OF FLUOROSCOPIC IMAGES SAVED: 1. FINDINGS: A single intraoperative image intensifier view of the chest was obtained during Port-A-Cath placement. Image provided shows a right subclavian approach. Central tip terminates in the low SVC. Evaluation for pneumothorax is suboptimal given fluoroscopic modality. Please note, interpreting radiologist was not present during the procedure. IMPRESSION: Fluoroscopic guidance provided during Port-A-Cath placement as above. Dictated by: Dictated on workstation # [id number]
== END 2020-08-17 13:15 | disposition home or self-care (01) ==
LOC: SDC 09:13
PROVIDERS: ATTEND Surgery
DX: I87.2 Venous insufficiency (chronic) (peripheral) (principal); C85.90 Non-Hodgkin lymphoma, unspecified, unspecified site; F41.9 Anxiety disorder, unspecified; F32.9 Major depressive disorder, single episode, unspecified; J90 Pleural effusion, not elsewhere classified; Z79.899 Other long term (current) drug therapy; Z88.2 Allergy status to sulfonamides; Z88.1 Allergy status to other antibiotic agents; Z87.891 Personal history of nicotine dependence; Z80.9 Family history of malignant neoplasm, unspecified; Z82.49 Family history of ischemic heart disease and other diseases of the circulatory system
CPT/HCPCS: 36561; 76000; 84703; 87081; C1788

== ENCOUNTER → 2020-08-18 | Outpatient (CLI) | payer OTHER ==
[~2020-08-18] MED LIST changes: +ACHD5005 PO; +RT-ALBUTEROL SULF 2.5 MG/3 ML PRE-MIX VIAL INH ONE
== END ==
LOC: RT 10:32
PROVIDERS: ATTEND Internal Medicine Hematology & Oncology
DX: C81.12 Nodular sclerosis Hodgkin lymphoma, intrathoracic lymph nodes (principal)
CPT/HCPCS: 94060; 94726; 94729

== ENCOUNTER → 2020-10-18 | Outpatient (CLI) | payer OTHER ==
[~2020-10-18] MED LIST changes: -RT-ALBUTEROL SULF 2.5 MG/3 ML PRE-MIX VIAL INH ONE
--- NOTE | 2020-10-18 14:50 | Diagnostic Imaging Report ---
Indication: Hodgkin's disease. Serum blood glucose level at time of injection is 84 mg/dL. Patient was measured 12.5 mCi F-18 FDG intravenously in the right antecubital location and PET imaging was performed from the top of skull to mid thighs. Noncontrast CT was also performed for attenuation, correction and anatomic correlation. Correlation is made with prior PET/CT study from 08/16/2020. There is symmetric activity throughout the brain. Physiologic activity in the soft tissues of the neck are noted. Previously noted hypermetabolic lymphadenopathy in the lower cervical spine supraclavicular regions as well as a right axillary region is no longer appreciated. There continues to be abnormal soft tissue in the anterior mediastinum but this is no longer hypermetabolic. No definite mediastinal or hilar hypermetabolism is identified. There has been reduction in size of left pleural effusion since prior PET/CT study which is now small. The hypermetabolic mass at the left cardiophrenic angle is no longer visualized. There is physiologic activity throughout the gastrointestinal and genitourinary tracts of the abdomen and pelvis. No suspicious region of hypermetabolism in the abdomen or pelvis is identified. IMPRESSION: Significant response to therapy. There has been significant reduction in hypermetabolic activity since exam from 08/16/2020. There continues to be some abnormal soft tissue in the anterior mediastinum but this is no longer hypermetabolic. Pleural fluid on the left is also significantly reduced in size. Patient does have a pericardial effusion. Dictated by: Dictated on workstation # [id number]
== END ==
LOC: RAD 09:00
PROVIDERS: ATTEND Internal Medicine Hematology & Oncology
DX: Z51.11 Encounter for antineoplastic chemotherapy (principal); C81.12 Nodular sclerosis Hodgkin lymphoma, intrathoracic lymph nodes; I31.3 Pericardial effusion (noninflammatory)
CPT/HCPCS: 78815; A9552

== ENCOUNTER → 2020-11-09 | Outpatient (RCR) | payer OTHER ==
[2020-08-12 13:10] LABS: BASOPHILS # (AUTO) 0.1 10^3/uL (0.0-0.1); BASOPHILS % (AUTO) 1 % (0-10); EOSINOPHILS # (AUTO) 0.8 10^3/uL (0.0-0.3); EOSINOPHILS % (AUTO) 5 % (0-10); HEMATOCRIT 34 % (35-52); HEMOGLOBIN 9.9 g/dL (11.5-16.0); LYMPHOCYTES # (AUTO) 0.9 10^3/uL (1.0-4.0); LYMPHOCYTES % (AUTO) 6 % (12-44); MEAN CORPUSCULAR HEMOGLOBIN 22 pg (25-34); MEAN CORPUSCULAR HGB CONC 29 g/dL (32-36); MEAN CORPUSCULAR VOLUME 75 fL (80-99); MEAN PLATELET VOLUME 9.5 fL (9.0-12.2); MONOCYTES # (AUTO) 0.5 10^3/uL (0.0-1.0); MONOCYTES % (AUTO) 3 % (0-12); NEUTROPHILS # (AUTO) 13.4 10^3/uL (1.8-7.8); NEUTROPHILS % (AUTO) 85 % (42-75); PLATELET COUNT 602 10^3/uL (130-400); WHITE BLOOD COUNT 15.8 10^3/uL (4.3-11.0)
[2020-08-12 13:32] LABS: ALANINE AMINOTRANSFERASE 13 U/L (0-55); ALBUMIN 3.5 GM/DL (3.2-4.5); ALKALINE PHOSPHATASE 126 U/L (40-136); BILIRUBIN,TOTAL 0.3 MG/DL (0.1-1.0); BUN/CREATININE RATIO 13; CALCIUM 9.4 MG/DL (8.5-10.1); CARBON DIOXIDE 22 MMOL/L (21-32); CHLORIDE 104 MMOL/L (98-107); CREATININE SERUM 0.79 MG/DL (0.60-1.30); GFR ESTIMATED > 60; GLUCOSE 86 MG/DL (70-105); POTASSIUM 3.6 MMOL/L (3.6-5.0); SODIUM 139 MMOL/L (135-145); TOTAL PROTEIN 7.9 GM/DL (6.4-8.2)
[2020-08-12 23:37] LABS: HEPATITIS C ANTIBODY C Non-Reactive (Non-Reactive)
[2020-08-31 12:03] LABS: BASOPHILS # (AUTO) 0.1 10^3/uL (0.0-0.1); BASOPHILS % (AUTO) 1 % (0-10); EOSINOPHILS # (AUTO) 0.7 10^3/uL (0.0-0.3); EOSINOPHILS % (AUTO) 10 % (0-10); HEMATOCRIT 34 % (35-52); HEMOGLOBIN 9.8 g/dL (11.5-16.0); LYMPHOCYTES % (AUTO) 15 % (12-44); MEAN CORPUSCULAR HEMOGLOBIN 22 pg (25-34); MEAN CORPUSCULAR HGB CONC 29 g/dL (32-36); MEAN CORPUSCULAR VOLUME 75 fL (80-99); MEAN PLATELET VOLUME 9.3 fL (9.0-12.2); MONOCYTES # (AUTO) 0.3 10^3/uL (0.0-1.0); MONOCYTES % (AUTO) 4 % (0-12); NEUTROPHILS # (AUTO) 4.8 10^3/uL (1.8-7.8); NEUTROPHILS % (AUTO) 70 % (42-75); PLATELET COUNT 402 10^3/uL (130-400); WHITE BLOOD COUNT 6.9 10^3/uL (4.3-11.0)
[2020-08-31 12:24] LABS: BUN/CREATININE RATIO 14; CARBON DIOXIDE 23 MMOL/L (21-32); CHLORIDE 107 MMOL/L (98-107); CREATININE SERUM 0.78 MG/DL (0.60-1.30); GFR ESTIMATED > 60; GLUCOSE 88 MG/DL (70-105); POTASSIUM 4.1 MMOL/L (3.6-5.0); SODIUM 140 MMOL/L (135-145); URIC ACID 1.7 MG/DL (2.6-7.2)
[2020-09-07 09:44] LABS: BASOPHILS # (AUTO) 0.1 10^3/uL (0.0-0.1); BASOPHILS % (AUTO) 1 % (0-10); EOSINOPHILS # (AUTO) 0.5 10^3/uL (0.0-0.3); EOSINOPHILS % (AUTO) 11 % (0-10); HEMATOCRIT 30 % (35-52); HEMOGLOBIN 8.5 g/dL (11.5-16.0); LYMPHOCYTES # (AUTO) 0.8 10^3/uL (1.0-4.0); LYMPHOCYTES % (AUTO) 19 % (12-44); MEAN CORPUSCULAR HEMOGLOBIN 22 pg (25-34); MEAN CORPUSCULAR HGB CONC 29 g/dL (32-36); MEAN CORPUSCULAR VOLUME 76 fL (80-99); MONOCYTES # (AUTO) 0.4 10^3/uL (0.0-1.0); MONOCYTES % (AUTO) 10 % (0-12); NEUTROPHILS # (AUTO) 2.6 10^3/uL (1.8-7.8); NEUTROPHILS % (AUTO) 59 % (42-75); PLATELET COUNT 338 10^3/uL (130-400); WHITE BLOOD COUNT 4.4 10^3/uL (4.3-11.0)
[2020-09-07 10:02] LABS: BUN/CREATININE RATIO 16; CALCIUM 8.4 MG/DL (8.5-10.1); CARBON DIOXIDE 22 MMOL/L (21-32); CHLORIDE 108 MMOL/L (98-107); CREATININE SERUM 0.74 MG/DL (0.60-1.30); GFR ESTIMATED > 60; GLUCOSE 99 MG/DL (70-105); POTASSIUM 3.8 MMOL/L (3.6-5.0); SODIUM 138 MMOL/L (135-145); URIC ACID 2.2 MG/DL (2.6-7.2)
[2020-09-14 13:35] LABS: BASOPHILS # (AUTO) 0.1 10^3/uL (0.0-0.1); BASOPHILS % (AUTO) 2 % (0-10); EOSINOPHILS # (AUTO) 0.3 10^3/uL (0.0-0.3); EOSINOPHILS % (AUTO) 6 % (0-10); HEMATOCRIT 34 % (35-52); HEMOGLOBIN 10.1 g/dL (11.5-16.0); LYMPHOCYTES # (AUTO) 1.1 10^3/uL (1.0-4.0); LYMPHOCYTES % (AUTO) 19 % (12-44); MEAN CORPUSCULAR HEMOGLOBIN 23 pg (25-34); MEAN CORPUSCULAR HGB CONC 30 g/dL (32-36); MEAN CORPUSCULAR VOLUME 76 fL (80-99); MEAN PLATELET VOLUME 9.4 fL (9.0-12.2); MONOCYTES # (AUTO) 0.4 10^3/uL (0.0-1.0); MONOCYTES % (AUTO) 7 % (0-12); NEUTROPHILS # (AUTO) 3.7 10^3/uL (1.8-7.8); NEUTROPHILS % (AUTO) 67 % (42-75); PLATELET COUNT 402 10^3/uL (130-400); WHITE BLOOD COUNT 5.5 10^3/uL (4.3-11.0)
[2020-09-14 13:53] LABS: BUN/CREATININE RATIO 21; CALCIUM 8.8 MG/DL (8.5-10.1); CARBON DIOXIDE 26 MMOL/L (21-32); CHLORIDE 105 MMOL/L (98-107); CREATININE SERUM 0.76 MG/DL (0.60-1.30); GFR ESTIMATED > 60; GLUCOSE 88 MG/DL (70-105); POTASSIUM 4.2 MMOL/L (3.6-5.0); SODIUM 140 MMOL/L (135-145); URIC ACID 3.3 MG/DL (2.6-7.2)
[2020-09-21 09:13] LABS: BASOPHILS # (AUTO) 0.1 10^3/uL (0.0-0.1); BASOPHILS % (AUTO) 1 % (0-10); EOSINOPHILS # (AUTO) 0.5 10^3/uL (0.0-0.3); EOSINOPHILS % (AUTO) 9 % (0-10); HEMATOCRIT 32 % (35-52); HEMOGLOBIN 9.5 g/dL (11.5-16.0); LYMPHOCYTES # (AUTO) 1.2 10^3/uL (1.0-4.0); LYMPHOCYTES % (AUTO) 22 % (12-44); MEAN CORPUSCULAR HEMOGLOBIN 23 pg (25-34); MEAN CORPUSCULAR HGB CONC 30 g/dL (32-36); MEAN CORPUSCULAR VOLUME 76 fL (80-99); MEAN PLATELET VOLUME 10.2 fL (9.0-12.2); MONOCYTES # (AUTO) 0.5 10^3/uL (0.0-1.0); MONOCYTES % (AUTO) 9 % (0-12); NEUTROPHILS # (AUTO) 3.2 10^3/uL (1.8-7.8); NEUTROPHILS % (AUTO) 59 % (42-75); PLATELET COUNT 325 10^3/uL (130-400); WHITE BLOOD COUNT 5.4 10^3/uL (4.3-11.0)
[2020-09-21 09:39] LABS: ALANINE AMINOTRANSFERASE 17 U/L (0-55); ALBUMIN 3.5 GM/DL (3.2-4.5); ALKALINE PHOSPHATASE 101 U/L (40-136); BILIRUBIN,TOTAL 0.3 MG/DL (0.1-1.0); BUN/CREATININE RATIO 21; CALCIUM 8.7 MG/DL (8.5-10.1); CARBON DIOXIDE 23 MMOL/L (21-32); CHLORIDE 107 MMOL/L (98-107); CREATININE SERUM 0.76 MG/DL (0.60-1.30); GFR ESTIMATED > 60; GLUCOSE 86 MG/DL (70-105); POTASSIUM 4.1 MMOL/L (3.6-5.0); SODIUM 139 MMOL/L (135-145); TOTAL PROTEIN 6.7 GM/DL (6.4-8.2)
[2020-09-28 16:08] LABS: BASOPHILS # (AUTO) 0.1 10^3/uL (0.0-0.1); BASOPHILS % (AUTO) 1 % (0-10); EOSINOPHILS # (AUTO) 0.6 10^3/uL (0.0-0.3); EOSINOPHILS % (AUTO) 7 % (0-10); HEMATOCRIT 34 % (35-52); HEMOGLOBIN 10.2 g/dL (11.5-16.0); LYMPHOCYTES # (AUTO) 1.2 10^3/uL (1.0-4.0); LYMPHOCYTES % (AUTO) 15 % (12-44); MEAN CORPUSCULAR HEMOGLOBIN 23 pg (25-34); MEAN CORPUSCULAR HGB CONC 30 g/dL (32-36); MEAN CORPUSCULAR VOLUME 79 fL (80-99); MEAN PLATELET VOLUME 10.2 fL (9.0-12.2); MONOCYTES # (AUTO) 0.4 10^3/uL (0.0-1.0); MONOCYTES % (AUTO) 5 % (0-12); NEUTROPHILS # (AUTO) 5.7 10^3/uL (1.8-7.8); NEUTROPHILS % (AUTO) 71 % (42-75); PLATELET COUNT 358 10^3/uL (130-400)
[2020-09-28 16:26] LABS: BUN/CREATININE RATIO 20; CALCIUM 8.8 MG/DL (8.5-10.1); CARBON DIOXIDE 21 MMOL/L (21-32); CHLORIDE 108 MMOL/L (98-107); CREATININE SERUM 0.79 MG/DL (0.60-1.30); GFR ESTIMATED > 60; GLUCOSE 81 MG/DL (70-105); POTASSIUM 4.2 MMOL/L (3.6-5.0); SODIUM 141 MMOL/L (135-145); URIC ACID 4.1 MG/DL (2.6-7.2)
[2020-10-05 09:12] LABS: BASOPHILS # (AUTO) 0.1 10^3/uL (0.0-0.1); BASOPHILS % (AUTO) 1 % (0-10); EOSINOPHILS # (AUTO) 0.5 10^3/uL (0.0-0.3); EOSINOPHILS % (AUTO) 9 % (0-10); HEMATOCRIT 34 % (35-52); HEMOGLOBIN 10.2 g/dL (11.5-16.0); LYMPHOCYTES % (AUTO) 19 % (12-44); MEAN CORPUSCULAR HEMOGLOBIN 24 pg (25-34); MEAN CORPUSCULAR HGB CONC 30 g/dL (32-36); MEAN CORPUSCULAR VOLUME 79 fL (80-99); MEAN PLATELET VOLUME 10.3 fL (9.0-12.2); MONOCYTES # (AUTO) 0.5 10^3/uL (0.0-1.0); MONOCYTES % (AUTO) 9 % (0-12); NEUTROPHILS # (AUTO) 3.4 10^3/uL (1.8-7.8); NEUTROPHILS % (AUTO) 63 % (42-75); PLATELET COUNT 293 10^3/uL (130-400); WHITE BLOOD COUNT 5.4 10^3/uL (4.3-11.0)
[2020-10-05 09:39] LABS: BUN/CREATININE RATIO 20; CALCIUM 9.1 MG/DL (8.5-10.1); CARBON DIOXIDE 22 MMOL/L (21-32); CHLORIDE 108 MMOL/L (98-107); CREATININE SERUM 0.79 MG/DL (0.60-1.30); GFR ESTIMATED > 60; GLUCOSE 88 MG/DL (70-105); SODIUM 139 MMOL/L (135-145); URIC ACID 4.1 MG/DL (2.6-7.2)
[2020-10-12 12:08] LABS: BASOPHILS # (AUTO) 0.1 10^3/uL (0.0-0.1); BASOPHILS % (AUTO) 1 % (0-10); EOSINOPHILS # (AUTO) 0.4 10^3/uL (0.0-0.3); EOSINOPHILS % (AUTO) 7 % (0-10); HEMATOCRIT 37 % (35-52); LYMPHOCYTES % (AUTO) 19 % (12-44); MEAN CORPUSCULAR HEMOGLOBIN 24 pg (25-34); MEAN CORPUSCULAR HGB CONC 30 g/dL (32-36); MEAN CORPUSCULAR VOLUME 80 fL (80-99); MEAN PLATELET VOLUME 9.8 fL (9.0-12.2); MONOCYTES # (AUTO) 0.4 10^3/uL (0.0-1.0); MONOCYTES % (AUTO) 7 % (0-12); NEUTROPHILS # (AUTO) 3.5 10^3/uL (1.8-7.8); NEUTROPHILS % (AUTO) 66 % (42-75); PLATELET COUNT 308 10^3/uL (130-400); WHITE BLOOD COUNT 5.3 10^3/uL (4.3-11.0)
[2020-10-12 12:36] LABS: BUN/CREATININE RATIO 21; CALCIUM 8.8 MG/DL (8.5-10.1); CARBON DIOXIDE 23 MMOL/L (21-32); CHLORIDE 106 MMOL/L (98-107); CREATININE SERUM 0.73 MG/DL (0.60-1.30); GFR ESTIMATED > 60; GLUCOSE 84 MG/DL (70-105); POTASSIUM 4.3 MMOL/L (3.6-5.0); SODIUM 139 MMOL/L (135-145); URIC ACID 3.4 MG/DL (2.6-7.2)
[2020-10-19 09:22] LABS: BASOPHILS # (AUTO) 0.1 10^3/uL (0.0-0.1); BASOPHILS % (AUTO) 2 % (0-10); EOSINOPHILS # (AUTO) 0.4 10^3/uL (0.0-0.3); EOSINOPHILS % (AUTO) 6 % (0-10); HEMATOCRIT 37 % (35-52); HEMOGLOBIN 11.4 g/dL (11.5-16.0); LYMPHOCYTES % (AUTO) 17 % (12-44); MEAN CORPUSCULAR HEMOGLOBIN 25 pg (25-34); MEAN CORPUSCULAR HGB CONC 31 g/dL (32-36); MEAN CORPUSCULAR VOLUME 81 fL (80-99); MEAN PLATELET VOLUME 10.8 fL (9.0-12.2); MONOCYTES # (AUTO) 0.4 10^3/uL (0.0-1.0); MONOCYTES % (AUTO) 8 % (0-12); NEUTROPHILS # (AUTO) 3.7 10^3/uL (1.8-7.8); NEUTROPHILS % (AUTO) 67 % (42-75); PLATELET COUNT 281 10^3/uL (130-400); WHITE BLOOD COUNT 5.5 10^3/uL (4.3-11.0)
[2020-10-19 09:48] LABS: ALANINE AMINOTRANSFERASE 25 U/L (0-55); ALBUMIN 3.8 GM/DL (3.2-4.5); ALKALINE PHOSPHATASE 99 U/L (40-136); BILIRUBIN,TOTAL 0.2 MG/DL (0.1-1.0); BUN/CREATININE RATIO 21; CALCIUM 8.9 MG/DL (8.5-10.1); CARBON DIOXIDE 22 MMOL/L (21-32); CHLORIDE 108 MMOL/L (98-107); CREATININE SERUM 0.77 MG/DL (0.60-1.30); GFR ESTIMATED > 60; GLUCOSE 96 MG/DL (70-105); POTASSIUM 3.9 MMOL/L (3.6-5.0); SODIUM 140 MMOL/L (135-145)
[2020-10-19 10:07] LABS: ERYTHROCYTE SEDIMENTATION RATE 21 MM/HR (0-20)
[2020-10-26 12:03] LABS: BASOPHILS # (AUTO) 0.1 10^3/uL (0.0-0.1); BASOPHILS % (AUTO) 1 % (0-10); EOSINOPHILS # (AUTO) 0.4 10^3/uL (0.0-0.3); EOSINOPHILS % (AUTO) 6 % (0-10); HEMATOCRIT 42 % (35-52); HEMOGLOBIN 12.8 g/dL (11.5-16.0); LYMPHOCYTES % (AUTO) 17 % (12-44); MEAN CORPUSCULAR HEMOGLOBIN 25 pg (25-34); MEAN CORPUSCULAR HGB CONC 30 g/dL (32-36); MEAN CORPUSCULAR VOLUME 83 fL (80-99); MEAN PLATELET VOLUME 10.5 fL (9.0-12.2); MONOCYTES # (AUTO) 0.4 10^3/uL (0.0-1.0); MONOCYTES % (AUTO) 7 % (0-12); NEUTROPHILS # (AUTO) 3.9 10^3/uL (1.8-7.8); NEUTROPHILS % (AUTO) 68 % (42-75); PLATELET COUNT 297 10^3/uL (130-400); WHITE BLOOD COUNT 5.7 10^3/uL (4.3-11.0)
[2020-10-26 12:22] LABS: BUN/CREATININE RATIO 26; CALCIUM 9.3 MG/DL (8.5-10.1); CARBON DIOXIDE 23 MMOL/L (21-32); CHLORIDE 106 MMOL/L (98-107); CREATININE SERUM 0.69 MG/DL (0.60-1.30); GFR ESTIMATED > 60; GLUCOSE 85 MG/DL (70-105); POTASSIUM 4.2 MMOL/L (3.6-5.0); SODIUM 139 MMOL/L (135-145); URIC ACID 3.3 MG/DL (2.6-7.2)
[2020-11-02 09:18] LABS: BASOPHILS # (AUTO) 0.1 10^3/uL (0.0-0.1); BASOPHILS % (AUTO) 2 % (0-10); EOSINOPHILS # (AUTO) 0.4 10^3/uL (0.0-0.3); EOSINOPHILS % (AUTO) 8 % (0-10); HEMATOCRIT 39 % (35-52); HEMOGLOBIN 12.2 g/dL (11.5-16.0); LYMPHOCYTES # (AUTO) 0.9 10^3/uL (1.0-4.0); LYMPHOCYTES % (AUTO) 19 % (12-44); MEAN CORPUSCULAR HEMOGLOBIN 26 pg (25-34); MEAN CORPUSCULAR HGB CONC 31 g/dL (32-36); MEAN CORPUSCULAR VOLUME 83 fL (80-99); MEAN PLATELET VOLUME 10.6 fL (9.0-12.2); MONOCYTES # (AUTO) 0.5 10^3/uL (0.0-1.0); MONOCYTES % (AUTO) 10 % (0-12); NEUTROPHILS % (AUTO) 61 % (42-75); PLATELET COUNT 241 10^3/uL (130-400); WHITE BLOOD COUNT 4.9 10^3/uL (4.3-11.0)
[2020-11-02 09:45] LABS: BUN/CREATININE RATIO 24; CALCIUM 9.1 MG/DL (8.5-10.1); CARBON DIOXIDE 21 MMOL/L (21-32); CHLORIDE 106 MMOL/L (98-107); CREATININE SERUM 0.76 MG/DL (0.60-1.30); GFR ESTIMATED > 60; GLUCOSE 88 MG/DL (70-105); POTASSIUM 4.2 MMOL/L (3.6-5.0); SODIUM 140 MMOL/L (135-145); URIC ACID 3.8 MG/DL (2.6-7.2)
[~2020-11-09] VITALS: Ht 162.6 cm; Wt 88.9 kg
[~2020-11-09] MED LIST changes: +ACETAMINOPHEN 325 MG TAB (TYLENOL) CANCER CTR PO PRN; +BLEOMYCIN INJ ONE; +BLEOMYCIN IV SCH; +DACARBAZINE IV SCH; +FOSAPREPITANT (CANCER CENTER) 150 MG in NS (IVPB) CANCER CENTER ONLY 150 ML IV SCH; +NS INJ ONE; +NS IV 1000 ML (CANCER CTR) IV SCH; +NS IV SCH; +VINBLASTINE SULFATE IV SCH; +diphenhydrAMINE 25 MG TAB (BENADRYL) CANCER CENTER PO ONE; +diphenhydrAMINE 50 MG/ML INJ (CANCER CENTER) IV PRN
[2020-11-09 13:32] LABS: BASOPHILS # (AUTO) 0.1 10^3/uL (0.0-0.1); BASOPHILS % (AUTO) 1 % (0-10); EOSINOPHILS # (AUTO) 0.4 10^3/uL (0.0-0.3); EOSINOPHILS % (AUTO) 6 % (0-10); HEMATOCRIT 39 % (35-52); HEMOGLOBIN 12.3 g/dL (11.5-16.0); LYMPHOCYTES # (AUTO) 0.9 10^3/uL (1.0-4.0); LYMPHOCYTES % (AUTO) 16 % (12-44); MEAN CORPUSCULAR HEMOGLOBIN 26 pg (25-34); MEAN CORPUSCULAR HGB CONC 31 g/dL (32-36); MEAN CORPUSCULAR VOLUME 84 fL (80-99); MEAN PLATELET VOLUME 10.6 fL (9.0-12.2); MONOCYTES # (AUTO) 0.4 10^3/uL (0.0-1.0); MONOCYTES % (AUTO) 8 % (0-12); NEUTROPHILS # (AUTO) 3.8 10^3/uL (1.8-7.8); NEUTROPHILS % (AUTO) 68 % (42-75); PLATELET COUNT 279 10^3/uL (130-400); WHITE BLOOD COUNT 5.6 10^3/uL (4.3-11.0)
[2020-11-09 13:52] LABS: BUN/CREATININE RATIO 27; CALCIUM 9.1 MG/DL (8.5-10.1); CARBON DIOXIDE 26 MMOL/L (21-32); CHLORIDE 106 MMOL/L (98-107); GFR ESTIMATED > 60; GLUCOSE 100 MG/DL (70-105); POTASSIUM 3.9 MMOL/L (3.6-5.0); SODIUM 138 MMOL/L (135-145); URIC ACID 3.2 MG/DL (2.6-7.2)
== END | disposition home or self-care (01) ==
LOC: ONC 08-11 14:11
PROVIDERS: ATTEND Internal Medicine Hematology & Oncology
DX: Z51.11 Encounter for antineoplastic chemotherapy (principal); C81.12 Nodular sclerosis Hodgkin lymphoma, intrathoracic lymph nodes; I89.0 Lymphedema, not elsewhere classified
CPT/HCPCS: 36591; 80048; 80053; 80074; 83615; 84550; 85025; 85652; 86703; 96367; 96375; 96409; 96411; 96413; 99213

== ENCOUNTER → 2020-12-07 | Outpatient (CLI) | payer OTHER ==
[~2020-12-07] MED LIST changes: -ACETAMINOPHEN 325 MG TAB (TYLENOL) CANCER CTR PO PRN; -BLEOMYCIN INJ ONE; -BLEOMYCIN IV SCH; -DACARBAZINE IV SCH; -FOSAPREPITANT (CANCER CENTER) 150 MG in NS (IVPB) CANCER CENTER ONLY 150 ML IV SCH; -NS INJ ONE; -NS IV 1000 ML (CANCER CTR) IV SCH; -NS IV SCH; -VINBLASTINE SULFATE IV SCH; -diphenhydrAMINE 25 MG TAB (BENADRYL) CANCER CENTER PO ONE; -diphenhydrAMINE 50 MG/ML INJ (CANCER CENTER) IV PRN
== END ==
LOC: RT 08:00
PROVIDERS: ATTEND Nurse Practitioner Adult Health
DX: Z51.11 Encounter for antineoplastic chemotherapy (principal); C81.12 Nodular sclerosis Hodgkin lymphoma, intrathoracic lymph nodes; I51.7 Cardiomegaly; I31.3 Pericardial effusion (noninflammatory)
CPT/HCPCS: 93306; 94010; 94726; 94729

== ENCOUNTER → 2020-12-16 | Outpatient (CLI) | payer OTHER ==
[~2020-12-16] MED LIST changes: +BARIUM SUSPENSION 2.1% (VANILLA SILQ) 450 ML PO ONE; +CATHETER FLUSH 10 ML SYR IV PRN; +HOLD METFORMIN - RECEIVED CONTRAST 20 ML VIAL IV SCH; +IOHEXOL 350 MG/ML 100 ML (OMNIPAQUE 350) VIAL IV ONE; +NS 100 ML (IVPB) BAG IV ONE
--- NOTE | 2020-12-16 15:18 | Diagnostic Imaging Report ---
EXAMINATION: CT neck, chest, and abdomen with intravenous contrast. TECHNIQUE: Multiple contiguous axial images were obtained through the neck, chest, and abdomen after the uneventful administration of intravenous contrast. All CT scans use one or more of the following dose optimizing techniques: automated exposure control, MA and/or KvP adjustment based on patient size and exam type or iterative reconstruction. HISTORY: NODULAR SCLEROSIS HODGKINS LYMPHOMA COMPARISON: PET/CT 10/18/2020 FINDINGS: Neck CT: No pathologically enlarged lymphadenopathy. Vessels of the neck demonstrate normal course. There continues to be mild dilatation of the left subclavian vein. Fascial planes are preserved and the deep spaces of the neck are normal. The visualized airway is widely patent. The base of the skull and the temporal bones are normal. Limited views of the brain including the cerebellum and brainstem are normal. The visualized portions of the orbits are normal. No suspicious osseous lesion or compression fracture. Chest CT: Thyroid: Stable subcentimeter right thyroid nodule. Mediastinum: There continues to be prominent soft tissue or edema within the upper, predominantly anterior mediastinum. This finding is similar to the prior PET/CT of 10/18/2020. There is no new focal suspicious axillary, mediastinal, or perihilar lymph node. The aorta is normal in caliber. There is a right-sided port catheter. Lungs and airways: There is linear atelectasis or scarring within the lung bases. No new consolidation, pleural effusion, or pneumothorax. No new suspicious pulmonary lesion. The airways are normal. Abdomen CT: Solid organs: The liver is normal without focal lesion. Multiple layering hyperdense stones within the gallbladder. There is no biliary ductal dilation. Pancreas is normal. Spleen is normal. Adrenal glands are normal. Bilateral renal cortical hypodensities are unchanged. There is no hydronephrosis. Bowel: There is no bowel obstruction. Peritoneum: There is no intraperitoneal free fluid or free air. There are no suspicious or pathologically enlarged lymph nodes within the visualized abdomen. Vasculature: Normal without aneurysm. Musculoskeletal: Degenerative changes of the spine without suspicious osseous lesion or compression fracture. IMPRESSION: 1. Stable soft tissue edema within the mediastinum is unchanged from prior PET/CT on 10/18/2020. 2. No new suspicious lymphadenopathy seen within the visualized neck, chest, or abdomen. Dictated by: Dictated on workstation # [id number]
== END ==
LOC: RAD 11:15
PROVIDERS: ATTEND Internal Medicine Hematology & Oncology
DX: Z51.11 Encounter for antineoplastic chemotherapy (principal); C81.12 Nodular sclerosis Hodgkin lymphoma, intrathoracic lymph nodes
CPT/HCPCS: 70491; 71260; 74160

== ENCOUNTER 2021-02-07 14:30 | Outpatient (RCR) | payer OTHER ==
[2020-11-16 09:18] LABS: BASOPHILS # (AUTO) 0.1 10^3/uL (0.0-0.1); BASOPHILS % (AUTO) 1 % (0-10); EOSINOPHILS # (AUTO) 0.4 10^3/uL (0.0-0.3); EOSINOPHILS % (AUTO) 7 % (0-10); HEMATOCRIT 40 % (35-52); HEMOGLOBIN 12.5 g/dL (11.5-16.0); LYMPHOCYTES # (AUTO) 1.1 10^3/uL (1.0-4.0); LYMPHOCYTES % (AUTO) 19 % (12-44); MEAN CORPUSCULAR HEMOGLOBIN 26 pg (25-34); MEAN CORPUSCULAR HGB CONC 31 g/dL (32-36); MEAN CORPUSCULAR VOLUME 84 fL (80-99); MEAN PLATELET VOLUME 10.6 fL (9.0-12.2); MONOCYTES # (AUTO) 0.6 10^3/uL (0.0-1.0); MONOCYTES % (AUTO) 10 % (0-12); NEUTROPHILS # (AUTO) 3.6 10^3/uL (1.8-7.8); NEUTROPHILS % (AUTO) 63 % (42-75); PLATELET COUNT 239 10^3/uL (130-400); WHITE BLOOD COUNT 5.7 10^3/uL (4.3-11.0)
[2020-11-16 09:40] LABS: ALANINE AMINOTRANSFERASE 29 U/L (0-55); ALBUMIN 3.7 GM/DL (3.2-4.5); ALKALINE PHOSPHATASE 80 U/L (40-136); BILIRUBIN,TOTAL 0.2 MG/DL (0.1-1.0); BUN/CREATININE RATIO 26; CALCIUM 9.1 MG/DL (8.5-10.1); CARBON DIOXIDE 27 MMOL/L (21-32); CHLORIDE 105 MMOL/L (98-107); CREATININE SERUM 0.77 MG/DL (0.60-1.30); GFR ESTIMATED > 60; GLUCOSE 91 MG/DL (70-105); POTASSIUM 4.2 MMOL/L (3.6-5.0); SODIUM 140 MMOL/L (135-145); TOTAL PROTEIN 6.9 GM/DL (6.4-8.2); URIC ACID 3.4 MG/DL (2.6-7.2)
[2020-11-16 10:26] LABS: ERYTHROCYTE SEDIMENTATION RATE 21 MM/HR (0-20)
[2020-11-23 11:31] LABS: BASOPHILS # (AUTO) 0.1 10^3/uL (0.0-0.1); BASOPHILS % (AUTO) 1 % (0-10); HEMOGLOBIN 13.6 g/dL (11.5-16.0)
[2020-11-23 11:33] LABS: EOSINOPHILS # (AUTO) 0.3 10^3/uL (0.0-0.3); EOSINOPHILS % (AUTO) 5 % (0-10); HEMATOCRIT 43 % (35-52); LYMPHOCYTES # (AUTO) 0.9 10^3/uL (1.0-4.0); LYMPHOCYTES % (AUTO) 14 % (12-44); MEAN CORPUSCULAR HEMOGLOBIN 27 pg (25-34); MEAN CORPUSCULAR HGB CONC 32 g/dL (32-36); MEAN CORPUSCULAR VOLUME 85 fL (80-99); MEAN PLATELET VOLUME 10.1 fL (9.0-12.2); MONOCYTES # (AUTO) 0.3 10^3/uL (0.0-1.0); MONOCYTES % (AUTO) 5 % (0-12); NEUTROPHILS % (AUTO) 75 % (42-75); PLATELET COUNT 227 10^3/uL (130-400); WHITE BLOOD COUNT 6.6 10^3/uL (4.3-11.0)
[2020-11-23 12:14] LABS: BUN/CREATININE RATIO 27; CALCIUM 9.1 MG/DL (8.5-10.1); CARBON DIOXIDE 25 MMOL/L (21-32); CHLORIDE 106 MMOL/L (98-107); CREATININE SERUM 0.74 MG/DL (0.60-1.30); GFR ESTIMATED > 60; GLUCOSE 69 MG/DL (70-105); POTASSIUM 3.9 MMOL/L (3.6-5.0); SODIUM 139 MMOL/L (135-145)
[2020-11-30 09:12] LABS: BASOPHILS # (AUTO) 0.1 10^3/uL (0.0-0.1); BASOPHILS % (AUTO) 1 % (0-10); EOSINOPHILS # (AUTO) 0.5 10^3/uL (0.0-0.3); EOSINOPHILS % (AUTO) 8 % (0-10); HEMATOCRIT 41 % (35-52); HEMOGLOBIN 12.8 g/dL (11.5-16.0); LYMPHOCYTES # (AUTO) 1.1 10^3/uL (1.0-4.0); LYMPHOCYTES % (AUTO) 20 % (12-44); MEAN CORPUSCULAR HEMOGLOBIN 27 pg (25-34); MEAN CORPUSCULAR HGB CONC 31 g/dL (32-36); MEAN CORPUSCULAR VOLUME 87 fL (80-99); MEAN PLATELET VOLUME 10.5 fL (9.0-12.2); MONOCYTES # (AUTO) 0.6 10^3/uL (0.0-1.0); MONOCYTES % (AUTO) 11 % (0-12); NEUTROPHILS # (AUTO) 3.3 10^3/uL (1.8-7.8); NEUTROPHILS % (AUTO) 60 % (42-75); PLATELET COUNT 220 10^3/uL (130-400); WHITE BLOOD COUNT 5.5 10^3/uL (4.3-11.0)
[2020-11-30 09:29] LABS: BUN/CREATININE RATIO 14; CALCIUM 9.2 MG/DL (8.5-10.1); CARBON DIOXIDE 25 MMOL/L (21-32); CHLORIDE 108 MMOL/L (98-107); CREATININE SERUM 0.78 MG/DL (0.60-1.30); GFR ESTIMATED > 60; GLUCOSE 82 MG/DL (70-105); POTASSIUM 3.9 MMOL/L (3.6-5.0); SODIUM 141 MMOL/L (135-145)
[2020-12-07 09:21] LABS: BASOPHILS # (AUTO) 0.1 10^3/uL (0.0-0.1); BASOPHILS % (AUTO) 1 % (0-10); EOSINOPHILS # (AUTO) 0.4 10^3/uL (0.0-0.3); EOSINOPHILS % (AUTO) 7 % (0-10); HEMATOCRIT 45 % (35-52); LYMPHOCYTES # (AUTO) 0.8 10^3/uL (1.0-4.0); LYMPHOCYTES % (AUTO) 16 % (12-44); MEAN CORPUSCULAR HEMOGLOBIN 28 pg (25-34); MEAN CORPUSCULAR HGB CONC 32 g/dL (32-36); MEAN CORPUSCULAR VOLUME 88 fL (80-99); MEAN PLATELET VOLUME 11.3 fL (9.0-12.2); MONOCYTES # (AUTO) 0.4 10^3/uL (0.0-1.0); MONOCYTES % (AUTO) 8 % (0-12); NEUTROPHILS # (AUTO) 3.3 10^3/uL (1.8-7.8); NEUTROPHILS % (AUTO) 67 % (42-75); PLATELET COUNT 254 10^3/uL (130-400); WHITE BLOOD COUNT 4.9 10^3/uL (4.3-11.0)
[2020-12-07 09:43] LABS: BUN/CREATININE RATIO 18; CALCIUM 9.9 MG/DL (8.5-10.1); CARBON DIOXIDE 27 MMOL/L (21-32); CHLORIDE 104 MMOL/L (98-107); CREATININE SERUM 0.77 MG/DL (0.60-1.30); GFR ESTIMATED > 60; GLUCOSE 90 MG/DL (70-105); POTASSIUM 3.9 MMOL/L (3.6-5.0); SODIUM 141 MMOL/L (135-145)
[2020-12-14 09:04] LABS: BASOPHILS # (AUTO) 0.1 10^3/uL (0.0-0.1); BASOPHILS % (AUTO) 1 % (0-10); EOSINOPHILS # (AUTO) 0.4 10^3/uL (0.0-0.3); EOSINOPHILS % (AUTO) 7 % (0-10); HEMATOCRIT 43 % (35-52); HEMOGLOBIN 13.8 g/dL (11.5-16.0); LYMPHOCYTES % (AUTO) 19 % (12-44); MEAN CORPUSCULAR HEMOGLOBIN 28 pg (25-34); MEAN CORPUSCULAR HGB CONC 32 g/dL (32-36); MEAN CORPUSCULAR VOLUME 86 fL (80-99); MEAN PLATELET VOLUME 10.6 fL (9.0-12.2); MONOCYTES # (AUTO) 0.6 10^3/uL (0.0-1.0); MONOCYTES % (AUTO) 12 % (0-12); NEUTROPHILS % (AUTO) 61 % (42-75); PLATELET COUNT 195 10^3/uL (130-400)
[2020-12-14 09:23] LABS: ALANINE AMINOTRANSFERASE 32 U/L (0-55); ALBUMIN 3.5 GM/DL (3.2-4.5); ALKALINE PHOSPHATASE 74 U/L (40-136); BILIRUBIN,TOTAL 0.2 MG/DL (0.1-1.0); BUN/CREATININE RATIO 16; CALCIUM 9.6 MG/DL (8.5-10.1); CARBON DIOXIDE 27 MMOL/L (21-32); CHLORIDE 106 MMOL/L (98-107); CREATININE SERUM 0.77 MG/DL (0.60-1.30); GFR ESTIMATED > 60; GLUCOSE 90 MG/DL (70-105); POTASSIUM 3.8 MMOL/L (3.6-5.0); SODIUM 142 MMOL/L (135-145); TOTAL PROTEIN 6.6 GM/DL (6.4-8.2)
[2020-12-14 09:40] LABS: ERYTHROCYTE SEDIMENTATION RATE 17 MM/HR (0-20)
[2021-01-16 09:45] LABS: BASOPHILS % (AUTO) 1 % (0-10); EOSINOPHILS # (AUTO) 0.4 10^3/uL (0.0-0.3); EOSINOPHILS % (AUTO) 9 % (0-10); HEMATOCRIT 45 % (35-52); HEMOGLOBIN 14.5 g/dL (11.5-16.0); LYMPHOCYTES # (AUTO) 0.6 10^3/uL (1.0-4.0); LYMPHOCYTES % (AUTO) 13 % (12-44); MEAN CORPUSCULAR HEMOGLOBIN 29 pg (25-34); MEAN CORPUSCULAR HGB CONC 32 g/dL (32-36); MEAN CORPUSCULAR VOLUME 89 fL (80-99); MEAN PLATELET VOLUME 9.9 fL (9.0-12.2); MONOCYTES # (AUTO) 0.3 10^3/uL (0.0-1.0); MONOCYTES % (AUTO) 7 % (0-12); NEUTROPHILS # (AUTO) 3.2 10^3/uL (1.8-7.8); NEUTROPHILS % (AUTO) 69 % (42-75); PLATELET COUNT 165 10^3/uL (130-400); WHITE BLOOD COUNT 4.6 10^3/uL (4.3-11.0)
[2021-01-16 10:12] LABS: ALANINE AMINOTRANSFERASE 32 U/L (0-55); ALBUMIN 3.8 GM/DL (3.2-4.5); ALKALINE PHOSPHATASE 94 U/L (40-136); BILIRUBIN,TOTAL 0.2 MG/DL (0.1-1.0); BUN/CREATININE RATIO 24; CALCIUM 9.7 MG/DL (8.5-10.1); CARBON DIOXIDE 22 MMOL/L (21-32); CHLORIDE 108 MMOL/L (98-107); CREATININE SERUM 0.74 MG/DL (0.60-1.30); GFR ESTIMATED > 60; GLUCOSE 83 MG/DL (70-105); POTASSIUM 4.1 MMOL/L (3.6-5.0); SODIUM 140 MMOL/L (135-145); TOTAL PROTEIN 7.2 GM/DL (6.4-8.2)
[~2021-02-07 14:30] MED LIST changes: +ACETAMINOPHEN 325 MG TAB (TYLENOL) CANCER CTR PO PRN; -BARIUM SUSPENSION 2.1% (VANILLA SILQ) 450 ML PO ONE; +BLEOMYCIN IV SCH; -CATHETER FLUSH 10 ML SYR IV PRN; +DACARBAZINE IV SCH; +FOSAPREPITANT (CANCER CENTER) 150 MG in NS (IVPB) CANCER CENTER ONLY 150 ML IV SCH; -HOLD METFORMIN - RECEIVED CONTRAST 20 ML VIAL IV SCH; -IOHEXOL 350 MG/ML 100 ML (OMNIPAQUE 350) VIAL IV ONE; -NS 100 ML (IVPB) BAG IV ONE; +NS IV 1000 ML (CANCER CTR) IV SCH; +NS IV SCH; +VINBLASTINE SULFATE IV SCH; +diphenhydrAMINE 25 MG TAB (BENADRYL) CANCER CENTER PO SCH; +diphenhydrAMINE 50 MG/ML INJ (CANCER CENTER) IV PRN
[2021-02-07 14:45] LABS: BASOPHILS % (AUTO) 1 % (0-10); EOSINOPHILS # (AUTO) 0.5 10^3/uL (0.0-0.3); EOSINOPHILS % (AUTO) 9 % (0-10); HEMATOCRIT 43 % (35-52); HEMOGLOBIN 14.2 g/dL (11.5-16.0); LYMPHOCYTES # (AUTO) 0.7 10^3/uL (1.0-4.0); LYMPHOCYTES % (AUTO) 13 % (12-44); MEAN CORPUSCULAR HEMOGLOBIN 29 pg (25-34); MEAN CORPUSCULAR HGB CONC 33 g/dL (32-36); MEAN CORPUSCULAR VOLUME 89 fL (80-99); MEAN PLATELET VOLUME 10.8 fL (9.0-12.2); MONOCYTES # (AUTO) 0.4 10^3/uL (0.0-1.0); MONOCYTES % (AUTO) 8 % (0-12); NEUTROPHILS # (AUTO) 3.7 10^3/uL (1.8-7.8); NEUTROPHILS % (AUTO) 69 % (42-75); PLATELET COUNT 180 10^3/uL (130-400); WHITE BLOOD COUNT 5.4 10^3/uL (4.3-11.0)
[2021-02-07 15:01] LABS: ALBUMIN 3.8 GM/DL (3.2-4.5); BILIRUBIN,TOTAL 0.3 MG/DL (0.1-1.0); CALCIUM 9.4 MG/DL (8.5-10.1); CREATININE SERUM 0.78 MG/DL (0.60-1.30); POTASSIUM 3.9 MMOL/L (3.6-5.0); TOTAL PROTEIN 7.5 GM/DL (6.4-8.2)
== END 2021-02-14 | disposition home or self-care (01) ==
LOC: ONC 14:30
PROVIDERS: ATTEND Internal Medicine Hematology & Oncology
DX: Z51.11 Encounter for antineoplastic chemotherapy (principal); Z51.0 Encounter for antineoplastic radiation therapy; C81.12 Nodular sclerosis Hodgkin lymphoma, intrathoracic lymph nodes; I89.0 Lymphedema, not elsewhere classified; Z87.891 Personal history of nicotine dependence
CPT/HCPCS: 80053; 83615; 84550; 85025; 85652; 96367; 96375; 96411; 96413; G0463; 36591; 77280; 77290; 77295; 77300; 77334; 77336; 77417; 77470; 80048; 96523; 99204; 99213; 99214

== ENCOUNTER → 2021-03-08 | Outpatient (CLI) | payer OTHER ==
[~2021-03-08] MED LIST changes: -ACETAMINOPHEN 325 MG TAB (TYLENOL) CANCER CTR PO PRN; -BLEOMYCIN IV SCH; +CATHETER FLUSH 10 ML SYR IV PRN; -DACARBAZINE IV SCH; -FOSAPREPITANT (CANCER CENTER) 150 MG in NS (IVPB) CANCER CENTER ONLY 150 ML IV SCH; +HOLD METFORMIN - RECEIVED CONTRAST 20 ML VIAL IV SCH; +IOHEXOL 350 MG/ML 100 ML (OMNIPAQUE 350) VIAL IV ONE; +NS 100 ML (IVPB) BAG IV ONE; -NS IV 1000 ML (CANCER CTR) IV SCH; -NS IV SCH; -VINBLASTINE SULFATE IV SCH; -diphenhydrAMINE 25 MG TAB (BENADRYL) CANCER CENTER PO SCH; -diphenhydrAMINE 50 MG/ML INJ (CANCER CENTER) IV PRN
--- NOTE | 2021-03-08 11:21 | Diagnostic Imaging Report ---
PROCEDURE: CT neck, chest, abdomen, and pelvis with contrast, abdomen and pelvis without. TECHNIQUE: Multiple contiguous axial images were obtained through the neck, chest, abdomen, and pelvis after the uneventful bolus administration of intravenous contrast. Precontrast acquisitions through the abdomen and pelvis were performed. Sagittal and coronal reformations are then performed. Auto Exposure Controls were utilized during the CT exam to meet ALARA standards for radiation dose reduction. INDICATION: Hodgkin's disease. COMPARISON: Correlation is made with the prior CT from 12/16/2020. FINDINGS: CT NECK: The visualized intracranial structures are unremarkable. No definite enlarged lymph nodes within the soft tissues of the neck are identified. The parotid and submandibular glands appear to be symmetric. The posterior nasopharynx, oropharynx, and larynx are unremarkable. There is a small low-density nodule in the right lobe of the thyroid measuring 8 mm in size. IMPRESSION: Stable CT neck. No cervical lymphadenopathy is detected. CT CHEST: A right chest wall port has the tip at the SVC/right atrial junction. The previously noted soft tissue density in the anterior mediastinum appears less prominent on today's study. No new areas of mediastinal or hilar lymphadenopathy are identified. There is trace pericardial fluid. There is a small left pleural effusion. No pulmonary infiltrates, nodules, or masses are seen. There is some minimal atelectasis or scarring in the posterior right lower lobe. IMPRESSION: 1. Continued small left pleural effusion. 2. The previously noted soft tissue in the anterior mediastinum is less prominent on today's exam when compared to the study of 12/16/2020. CT ABDOMEN AND PELVIS: The liver is unremarkable. Multiple stones in the gallbladder are noted. There is no biliary ductal dilatation. The pancreas and spleen are unremarkable. There is no adrenal mass. There is a small cyst in the upper pole of the left kidney. There is no hydronephrosis. The aorta is nonaneurysmal. No central retroperitoneal or mesenteric lymphadenopathy is seen. The small and large bowel loops are of normal caliber. No obstruction is seen. There is no free fluid or fluid collection. The uterus and bladder are unremarkable. No definite pelvic lymphadenopathy is identified. The bony structures are nonacute. IMPRESSION: 1. Cholelithiasis. 2. No evidence of abdominal or pelvic lymphadenopathy. The overall appearance is stable when compared to the prior CT of 12/16/2020. Dictated by: Dictated on workstation # [id number]
== END ==
LOC: RAD 09:45
PROVIDERS: ATTEND Nurse Practitioner Adult Health
DX: K80.20 Calculus of gallbladder without cholecystitis without obstruction (principal); J90 Pleural effusion, not elsewhere classified; C81.12 Nodular sclerosis Hodgkin lymphoma, intrathoracic lymph nodes
CPT/HCPCS: 70491; 71260; 74178

== ENCOUNTER 2021-03-15 09:01 | Outpatient (RCR) | payer OTHER ==
[~2021-03-15 09:01] MED LIST changes: -CATHETER FLUSH 10 ML SYR IV PRN; -HOLD METFORMIN - RECEIVED CONTRAST 20 ML VIAL IV SCH; -IOHEXOL 350 MG/ML 100 ML (OMNIPAQUE 350) VIAL IV ONE; -NS 100 ML (IVPB) BAG IV ONE
[2021-03-15 09:17] LABS: BASOPHILS # (AUTO) 0.1 10^3/uL (0.0-0.1); BASOPHILS % (AUTO) 1 % (0-10); EOSINOPHILS # (AUTO) 0.3 10^3/uL (0.0-0.3); EOSINOPHILS % (AUTO) 8 % (0-10); HEMATOCRIT 46 % (35-52); LYMPHOCYTES # (AUTO) 0.6 10^3/uL (1.0-4.0); LYMPHOCYTES % (AUTO) 15 % (12-44); MEAN CORPUSCULAR HEMOGLOBIN 30 pg (25-34); MEAN CORPUSCULAR HGB CONC 33 g/dL (32-36); MEAN CORPUSCULAR VOLUME 91 fL (80-99); MEAN PLATELET VOLUME 10.2 fL (9.0-12.2); MONOCYTES # (AUTO) 0.3 10^3/uL (0.0-1.0); MONOCYTES % (AUTO) 8 % (0-12); NEUTROPHILS # (AUTO) 2.8 10^3/uL (1.8-7.8); NEUTROPHILS % (AUTO) 68 % (42-75); PLATELET COUNT 224 10^3/uL (130-400); WHITE BLOOD COUNT 4.2 10^3/uL (4.3-11.0)
[2021-03-15 09:38] LABS: ALBUMIN 3.7 GM/DL (3.2-4.5); BILIRUBIN,TOTAL 0.3 MG/DL (0.1-1.0); CREATININE SERUM 0.8 MG/DL (0.60-1.30); POTASSIUM 4.1 MMOL/L (3.6-5.0); TOTAL PROTEIN 7.3 GM/DL (6.4-8.2)
== END 2021-06-13 | disposition home or self-care (01) ==
LOC: ONC 09:01
PROVIDERS: ATTEND Internal Medicine Hematology & Oncology
DX: Z45.2 Encounter for adjustment and management of vascular access device (principal); C81.12 Nodular sclerosis Hodgkin lymphoma, intrathoracic lymph nodes; I89.0 Lymphedema, not elsewhere classified; Z92.21 Personal history of antineoplastic chemotherapy
CPT/HCPCS: 80053; 83615; 85025; 96523; G0463; 99213

== ENCOUNTER → 2021-06-14 | Outpatient (CLI) | payer OTHER ==
[~2021-06-14] MED LIST changes: +BARIUM SUSPENSION 2.1% (VANILLA SILQ) 450 ML PO ONE; +CATHETER FLUSH 10 ML SYR IV PRN; +HOLD METFORMIN - RECEIVED CONTRAST 20 ML VIAL IV SCH; +IOHEXOL 350 MG/ML 100 ML (OMNIPAQUE 350) VIAL IV ONE; +NS 100 ML (IVPB) BAG IV ONE
--- NOTE | 2021-06-14 13:45 | Diagnostic Imaging Report ---
CT NECK-CHEST W/ABDOMEN W WO INDICATION: Nodular sclerosing Hodgkin's lymphoma COMPARISON: 12/16/2020 TECHNIQUE: CT imaging of the neck, chest, and abdomen was performed with IV contrast. Automatic exposure controls were utilized to keep dose as low as reasonably achievable. FINDINGS: NECK: No lymphadenopathy has developed. The parotid, submandibular and thyroid glands all stable appearance without concerning abnormality. No retropharyngeal fluid collection. Airway is widely patent. Visualized paranasal sinuses are clear. No concerning abnormality in cervical spine. CHEST: No endoluminal debris within the trachea. A small amount of groundglass attenuation has developed along the medial aspect of the right lower lobe and to a lesser extent in the medial aspect of left lower lobe. No pulmonary nodules. Small left pleural effusion is unchanged. Improving but persistent edema throughout the anterior mediastinum. Trace pericardial effusion is similar. No axillary, hilar or mediastinal lymphadenopathy is appreciated. Small hiatal hernia is unchanged. No concerning focal osseous lesions. ABDOMEN: No free intraperitoneal air or fluid. The liver is normal. Cholelithiasis is unchanged. There are no features of acute cholecystitis. Spleen and pancreas are normal. No adrenal mass. Kidneys enhance without solid mass lesion or obstruction. No pericolonic inflammatory change or obstruction. No abdominal lymphadenopathy. No worrisome focal osseous lesion. IMPRESSION: 1. Improving but persistent posttreatment edema within the anterior mediastinum. No lymphadenopathy has developed within the neck, chest or abdomen. 2. New groundglass attenuation in the medial aspect of both lower lobes could be due to an infectious/inflammatory process. Dictated by: Dictated on workstation # [id number]
== END ==
LOC: RAD 10:06
PROVIDERS: ATTEND Internal Medicine Hematology & Oncology
DX: Z51.11 Encounter for antineoplastic chemotherapy (principal); C81.12 Nodular sclerosis Hodgkin lymphoma, intrathoracic lymph nodes
CPT/HCPCS: 70491; 71260; 74170

== ENCOUNTER 2021-06-20 09:58 | Outpatient (RCR) | payer OTHER ==
[2021-06-14 09:50] LABS: BASOPHILS # (AUTO) 0.1 10^3/uL (0.0-0.1); BASOPHILS % (AUTO) 1 % (0-10); EOSINOPHILS # (AUTO) 0.3 10^3/uL (0.0-0.3); EOSINOPHILS % (AUTO) 6 % (0-10); HEMATOCRIT 44 % (35-52); HEMOGLOBIN 14.4 g/dL (11.5-16.0); LYMPHOCYTES # (AUTO) 0.9 10^3/uL (1.0-4.0); LYMPHOCYTES % (AUTO) 16 % (12-44); MEAN CORPUSCULAR HEMOGLOBIN 30 pg (25-34); MEAN CORPUSCULAR HGB CONC 33 g/dL (32-36); MEAN CORPUSCULAR VOLUME 90 fL (80-99); MEAN PLATELET VOLUME 10.2 fL (9.0-12.2); MONOCYTES # (AUTO) 0.4 10^3/uL (0.0-1.0); MONOCYTES % (AUTO) 7 % (0-12); NEUTROPHILS # (AUTO) 3.7 10^3/uL (1.8-7.8); NEUTROPHILS % (AUTO) 70 % (42-75); PLATELET COUNT 219 10^3/uL (130-400); WHITE BLOOD COUNT 5.4 10^3/uL (4.3-11.0)
[2021-06-14 10:08] LABS: ALBUMIN 3.7 GM/DL (3.2-4.5); BILIRUBIN,TOTAL 0.3 MG/DL (0.1-1.0); CALCIUM 8.7 MG/DL (8.5-10.1); CREATININE SERUM 0.74 MG/DL (0.60-1.30); TOTAL PROTEIN 7.2 GM/DL (6.4-8.2)
[~2021-06-20 09:58] MED LIST changes: -BARIUM SUSPENSION 2.1% (VANILLA SILQ) 450 ML PO ONE; -CATHETER FLUSH 10 ML SYR IV PRN; -HOLD METFORMIN - RECEIVED CONTRAST 20 ML VIAL IV SCH; -IOHEXOL 350 MG/ML 100 ML (OMNIPAQUE 350) VIAL IV ONE; -NS 100 ML (IVPB) BAG IV ONE
== END 2021-07-07 ==
LOC: ONC 09:58
PROVIDERS: ATTEND Internal Medicine Hematology & Oncology
DX: Z51.11 Encounter for antineoplastic chemotherapy (principal); Z45.2 Encounter for adjustment and management of vascular access device; C81.12 Nodular sclerosis Hodgkin lymphoma, intrathoracic lymph nodes; I89.0 Lymphedema, not elsewhere classified; Z92.21 Personal history of antineoplastic chemotherapy
CPT/HCPCS: 80053; 83615; 85025; 99213

== ENCOUNTER 2021-06-20 10:42 | Emergency (ER) | payer OTHER ==
[~2021-06-20] VITALS: Ht 162 cm; Wt 113.0 kg
--- NOTE | 2021-06-20 11:26 | ED Cough/URI ---
General Chief Complaint: COVID19 Suspect/Confirmed Stated Complaint: CONGESTION,COUGH Nursing Triage Note: PT AMB TO [facility] PT STATES WAS SENT TO ED BY DR MYRICK HAD CT CHEST ON 06/14 AND HAD SOME PNEM WAS SENT TO ED FOR COVID AND FLU SWAB. PT HAS HEAD CONGESTION DENIES FEVERS OR ANY OTHER SX AT THIS X. ([employer] MED STUDENT) History of Present Illness Date Seen by Provider: Jun 20, 2021 Time Seen by Provider: 11:05 Initial Comments Nallely is a 50 yo F with a history of lymphoma who presents today for URI and possible pneumonia seen on CT 06/14. CT-neck, chest, abdomen to monitor her lymph owen when fluid was noted on the medial bases of her lungs bilaterally. Pt states around the same time she had begun having cold-like symptoms with upper respiratory congestion, but denies productive cough, fever, or sob. She has not done anything for her symptoms since, and she is still congested today. Pt states she feels like these are her normal cold symptoms. Timing/Duration: week Severity/Quality: mild ([employer] STUDENT) Allergies and Home Medications Allergies Coded Allergies: Sulfa (Sulfonamide Antibiotics) (Verified Allergy, Unknown, 08/04/20) sulfamethoxazole (Verified Allergy, Unknown, RASH, 08/17/20) RASH/FEVER trimethoprim (Verified Allergy, Unknown, RASH, 08/17/20) RASH/FEVER Patient Home Medication List Home Medication List Reviewed: Yes (RONNA ESCOTO) Hydrocodone Bit/Acetaminophen (HYDROcodone/APAP 5 MG/325 MG TAB) 1 Tab Tab, 1 TAB PO Q8H PRN for PAIN-MODERATE (5-7) Prescribed by: VALERI HORVATH on 08/17/20 1200 Paroxetine HCl (Paroxetine HCl) 20 Mg Tablet, 20 MG PO DAILY, (Reported) Entered as Reported by: CED LANIER on 08/05/20 1321 Review of Systems Review of Systems Constitutional: No chills, No fever EENTM: No blurred vision, No double vision Respiratory: cough, phlegm; No short of breath Cardiovascular: No chest pain, No palpitations Gastrointestinal: No constipation, No diarrhea Genitourinary: No dysuria, No frequency Musculoskeletal: No muscle stiffness, No muscle cramps Skin: No change in color, No change in hair/nails Psychiatric/Neurological: Denies Anxiety, Denies Depressed Hematologic/Lymphatic: Other (History of lymphoma treated with chemotherapy ) (ISA[employer]ALEX[employer] [email or web address] STUDENT) All Other Systems Reviewed Negative Unless Noted: Yes (RONNA ESCOTO) Past Pomsbyq-Cmnizh-Cdfyzl Hx Patient Social History Tobacco Use?: No Substance use?: No Alcohol Use?: No (ISAUROCoinSeed TIFFANI) Tobacco Use?: No Use of E-Cig and/or Vaping dev: No Substance use?: No (RONNA ESCOTO) Immunizations Up To Date Tetanus Booster (TDap): Unknown (ISA[employer]Se[employer] STUDENT) Seasonal Allergies Seasonal Allergies: Yes (ISAUROOVGuide) Past Medical History Surgeries: Yes (LYMPH NODE REMOVED FROM LEFT AXILLA) Respiratory: No ("WENT TO THE DOCTOR IN [place] FOR SHORTNESS OF BREATH) Currently Using CPAP: No Currently Using BIPAP: No Cardiac: Yes Palpitations Neurological: No Reproductive Disorders: No TERMITE EXTERMINATOR History: Menopausal Genitourinary: No Kidney Stones Gastrointestinal: No Musculoskeletal: No Endocrine: Yes ("THYROID IS A LITTLE OFF.") HEENT: No Loss of Vision: Denies Hearing Impairment: Denies Cancer: Yes (HODGKINS DISEASE) Psychosocial: Yes Anxiety, Bipolar, Depression Integumentary: Yes (ITCHY SKIN) Blood Disorders: No (ISAUROSpangleLUIS [email or web address] STUDENT) Family Medical History Heart Disease, Cancer, Hypertension ([employer]) Physical Exam Vital Signs - First Documented 06/20/21 10:53 Temp 36.9 Pulse 100 Resp 18 B/P (MAP) 133/95 (108) Pulse Ox 97 (RONNA ESCOTO) Capillary Refill : Less Than 3 Seconds ([employer] STUDENT) Height: 5'4.00" Weight: 225lbs. oz. 102.006325pd; 43.00 BMI Method:Stated General Appearance: WD/WN, no apparent distress Eyes: Bilateral Eye Normal Inspection HEENT: PERRL/EOMI, normal ENT inspection, other (rhinorrhea ) Neck: non-tender, full range of motion, supple, normal inspection Respiratory: chest non-tender, lungs clear, normal breath sounds, no respiratory distress, no accessory muscle use Cardiovascular: regular rate, rhythm, no edema, no gallop, no JVD, no murmur Gastrointestinal: normal bowel sounds, non tender, soft, no organomegaly, no pulsatile mass Extremities: normal range of motion, non-tender, normal inspection, no pedal edema, no calf tenderness Neurologic/Psychiatric: no motor/sensory deficits, alert, normal mood/affect, oriented x 3 Skin: normal color, warm/dry Lymphatic: no adenopathy ([employer]) Progress/Results/Core Measures Suspected Sepsis SIRS Temperature: Pulse: 100 Respiratory Rate: 18 Blood Pressure 133 /95 Mean: 108 ([employer]) Results/Orders Lab Results Laboratory Tests Test 06/20/21 11:15 06/20/21 11:20 Range/Units Influenza Type A (RT-PCR) Not Detected Not Detecte Influenza Type B (RT-PCR) Not Detected Not Detecte SARS-CoV-2 RNA (RT-PCR) Not Detected Not Detecte White Blood Count 7.3 4.3-11.0 10^3/uL Red Blood Count 5.17 H 3.80-5.11 10^6/uL Hemoglobin 15.4 11.5-16.0 g/dL Hematocrit 47 35-52 % Mean Corpuscular Volume 92 80-99 fL Mean Corpuscular Hemoglobin 30 25-34 pg Mean Corpuscular Hemoglobin Concent 33 32-36 g/dL Red Cell Distribution Width 13.2 10.0-14.5 % Platelet Count 212 130-400 10^3/uL Mean Platelet Volume 10.1 9.0-12.2 fL Immature Granulocyte % (Auto) 0 % Neutrophils (%) (Auto) 73 42-75 % Lymphocytes (%) (Auto) 12 12-44 % Monocytes (%) (Auto) 10 0-12 % Eosinophils (%) (Auto) 3 0-10 % Basophils (%) (Auto) 1 0-10 % Neutrophils # (Auto) 5.3 1.8-7.8 10^3/uL Lymphocytes # (Auto) 0.9 L 1.0-4.0 10^3/uL Monocytes # (Auto) 0.7 0.0-1.0 10^3/uL Eosinophils # (Auto) 0.2 0.0-0.3 10^3/uL Basophils # (Auto) 0.1 0.0-0.1 10^3/uL Immature Granulocyte # (Auto) 0.0 0.0-0.1 10^3/uL Sodium Level 137 135-145 MMOL/L Potassium Level 4.1 3.6-5.0 MMOL/L Chloride Level 104 98-107 MMOL/L Carbon Dioxide Level 20 L 21-32 MMOL/L Anion Gap 13 5-14 MMOL/L Blood Urea Nitrogen 12 7-18 MG/DL Creatinine 0.80 0.60-1.30 MG/DL Estimat Glomerular Filtration Rate 77 BUN/Creatinine Ratio 15 Glucose Level 89 70-105 MG/DL Calcium Level 9.8 8.5-10.1 MG/DL C-Reactive Protein High Sensitivity 3.84 H 0.00-0.50 MG/DL (RONNA ESCOTO) My Orders Orders - RONNA ESCOTO Chest 1 View, Ap/Pa Only (06/20/21 11:08) Cbc With Automated Diff (06/20/21 11:08) Basic Metabolic Panel (06/20/21 11:08) Hs C Reactive Protein (06/20/21 11:08) Covid 19 Inhouse Test (06/20/21 11:08) Influenza A And B By Pcr (06/20/21 11:08) (RONNA ESCOTO) Vital Signs/I&O 06/20/21 10:53 Temp 36.9 Pulse 100 Resp 18 B/P (MAP) 133/95 (108) Pulse Ox 97 (RONNA ESCOTO) Vital Signs/I&O Capillary Refill : Less Than 3 Seconds ([employer] MED STUDENT) Blood Pressure Mean: 108 Progress Note : Time: 11:42 Progress Note I attest that I saw this patient alongside the medical student and agree with his documented history, physical exam and review of systems except as otherwise noted. Patient has normal vital signs upper respiratory type congestion likely viral. We have discussed conservative management. Because of her CT findings we did review the CT and did not appreciate a large amount of groundglass opacities or infiltrates. We will get a chest x-ray today to compare. We will also recheck some labs, Covid and influenza swab. Did discuss the case with Dr. Goff, oncology (RONNA ESCOTO) Diagnostic Imaging Diagonstic Imaging: Xray Plain Films/CT/US/NM/MRI: chest Comments No acute cardiopulmonary process on 1 view chest x-ray. +[facility]. [place], [place] NAME: DYLAN DAY [facility] REC#: [id number] PT STATUS: REG ER : 1970 PHYSICIAN: RONNA ESCOTO MD ADMIT DATE: 06/20/21/ER Draft Date of Exam:06/20/21 CHEST 1 VIEW, AP/PA ONLY Indication: Shortness of air Compared: 08/06/2020 Findings: There has been substantial improvements in enlargement of the cardiomediastinal silhouette when compared to the prior. The vascularity showed no significant overdistention. There is no findings of edema or pneumonia. Impression: Central resolution of prior failure pattern with no adverse interval development. Dictated on workstation # [id number] Dict: 06/20/21 1213 Trans: 06/20/21 1215 [facility] [id number] Interpreted by: FRAN GALICIA Electronically signed by: Reviewed: Reviewed by Me (RONNA ESCOTO) Departure Impression Primary Impression: Viral upper respiratory tract infection Disposition: HOME, SELF-CARE Condition: Stable Departure-Patient Inst. Decision time for Depature: 12:25 (RONNA ESCOTO) Referrals: JANEY MUHAMMAD (PCP/Family) Primary Care Physician Patient Instructions: Viral Upper Respiratory Infection, Adult (DC) Add. Discharge Instructions: Drink plenty of fluids. Humidifiers and vapor rubs. Decongestants as necessary. All discharge instructions reviewed with patient and/or family. Voiced un derstanding. Copy Copies To 1: JANEY MUHAMMAD NATHAN MED STUDENT Jun 20, 2021 11:26 RONNA ESCOTO Jun 20, 2021 11:43
[2021-06-20 11:35] LABS: BASOPHILS # (AUTO) 0.1 10^3/uL (0.0-0.1); BASOPHILS % (AUTO) 1 % (0-10); EOSINOPHILS # (AUTO) 0.2 10^3/uL (0.0-0.3); EOSINOPHILS % (AUTO) 3 % (0-10); HEMATOCRIT 47 % (35-52); HEMOGLOBIN 15.4 g/dL (11.5-16.0); LYMPHOCYTES # (AUTO) 0.9 10^3/uL (1.0-4.0); LYMPHOCYTES % (AUTO) 12 % (12-44); MEAN CORPUSCULAR HEMOGLOBIN 30 pg (25-34); MEAN CORPUSCULAR HGB CONC 33 g/dL (32-36); MEAN CORPUSCULAR VOLUME 92 fL (80-99); MEAN PLATELET VOLUME 10.1 fL (9.0-12.2); MONOCYTES # (AUTO) 0.7 10^3/uL (0.0-1.0); MONOCYTES % (AUTO) 10 % (0-12); NEUTROPHILS # (AUTO) 5.3 10^3/uL (1.8-7.8); NEUTROPHILS % (AUTO) 73 % (42-75); PLATELET COUNT 212 10^3/uL (130-400); WHITE BLOOD COUNT 7.3 10^3/uL (4.3-11.0)
[2021-06-20 11:44] LABS: POTASSIUM 4.1 MMOL/L (3.6-5.0)
[2021-06-20 11:45] LABS: CALCIUM 9.8 MG/DL (8.5-10.1)
[2021-06-20 11:50] LABS: CREATININE SERUM 0.8 MG/DL (0.60-1.30)
--- NOTE | 2021-06-20 12:15 | Diagnostic Imaging Report ---
Indication: Shortness of air Compared: 08/06/2020 Findings: There has been substantial improvements in enlargement of the cardiomediastinal silhouette when compared to the prior. The vascularity showed no significant overdistention. There is no findings of edema or pneumonia. Impression: Central resolution of prior failure pattern with no adverse interval development. Dictated by: Dictated on workstation # [id number]
[2021-06-20 12:26] VITALS: BP 133/95
== END 2021-06-20 12:26 | disposition home or self-care (01) ==
LOC: EDUNIT# 10:42 → ER 10:45
DX: J06.9 Acute upper respiratory infection, unspecified (principal); F41.9 Anxiety disorder, unspecified; F32.9 Major depressive disorder, single episode, unspecified; Z20.822 Contact with and (suspected) exposure to COVID-19; Z79.899 Other long term (current) drug therapy
CPT/HCPCS: 36415; 71045; 80048; 85025; 86141; 87636

== ENCOUNTER 2021-09-19 08:54 | Outpatient (RCR) | payer SELFPAY ==
[2021-09-19 09:45] LABS: BASOPHILS % (AUTO) 1 % (0-10); EOSINOPHILS # (AUTO) 0.3 10^3/uL (0.0-0.3); EOSINOPHILS % (AUTO) 6 % (0-10); HEMATOCRIT 40 % (35-52); LYMPHOCYTES % (AUTO) 19 % (12-44); MEAN CORPUSCULAR HEMOGLOBIN 29 pg (25-34); MEAN CORPUSCULAR HGB CONC 32 g/dL (32-36); MEAN CORPUSCULAR VOLUME 89 fL (80-99); MONOCYTES # (AUTO) 0.4 10^3/uL (0.0-1.0); MONOCYTES % (AUTO) 8 % (0-12); NEUTROPHILS # (AUTO) 3.4 10^3/uL (1.8-7.8); NEUTROPHILS % (AUTO) 66 % (42-75); PLATELET COUNT 253 10^3/uL (130-400); WHITE BLOOD COUNT 5.2 10^3/uL (4.3-11.0)
[2021-09-19 10:02] LABS: ALBUMIN 3.5 GM/DL (3.2-4.5); BILIRUBIN,TOTAL 0.3 MG/DL (0.1-1.0); CALCIUM 8.5 MG/DL (8.5-10.1); CREATININE SERUM 0.76 MG/DL (0.60-1.30); POTASSIUM 3.9 MMOL/L (3.6-5.0); TOTAL PROTEIN 6.8 GM/DL (6.4-8.2)
== END 2021-10-05 | disposition home or self-care (01) ==
LOC: ONC 08:54
PROVIDERS: ATTEND Internal Medicine Hematology & Oncology
DX: Z45.2 Encounter for adjustment and management of vascular access device (principal); C81.12 Nodular sclerosis Hodgkin lymphoma, intrathoracic lymph nodes
CPT/HCPCS: 80053; 83615; 85025; G0463; 36591; 99213